=== PATIENT | female | born 1955 | race Caucasian/White ===

== ENCOUNTER 2021-06-25 01:51 | Inpatient (IN) | payer OTHER, BC ==
--- OUTSIDE RECORDS SUMMARY | 2021-06-25 01:55 | XMS REPORT | Continuity of Care Document ---
:1955 Author Organization [facility] t Address 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 7-23 st artery artery 00:00: Hospita stenosis stenosis 00 l SOB SOB Disease Active [facility] (shortness (shortness 6-25 st of breath) of breath) 00:00: Ho spita 00 l PAD PAD Disease Active [facility] (periphera (periphera -25 st l artery l artery 00:00: Hospit a disease) disease) 00 l Claudicati Claudicati Disease Active M [facility]i on on 04-07 st 00:00: Hospita 00 l Aortic Aortic Disease Active [facility] valve valve 04-07 st disorder disorder 00:00: Hospit a 00 l Hyperlipid Hyperlipid Disease Active M ethodi emia emia 04-07 00:00: Hospita 00 l Carotid Carotid Disease Active [facility] bruit bruit 04-07 00:00: Hospita 00 l Allergies, Adverse Reactions, Alerts This patient has no known allergies or adverse reactions. Family History Family Member Diagnosis Comments Start Date Stop Date Source Natural mother Heart attack [facility] Natural mother CABG/Stent [facility] Natural father Alzheimer's disease [facility] Social History Social Habit Start Date Stop Date Quantity Comments Source History SDOH [facility] Alcohol Std Drinks Hospit al History SDOH [facility] Alcohol Binge Hospital Exposure to Not sure [facility] SARS-CoV-2 (event) Hospit al Cigarettes smoked 2020-05-31 2020-05-[address] current (pack per 00:00:00 00:00:00 Hospita l day) - Reported Cigarette 2020-05-31 2020-05-31 [facility] pack-years 00:00:00 00:00:00 Hospital Tobacco use and 2020-05-31 2020-05-31 Never used [facility] exposure 00:00:00 00:00:00 Hospital Alcohol intake 2020-05-31 2020-05-31 Lifetime [facility] 00:00:00 00:00:00 non-drinker Hospital (finding) History SDOH 2020-05-31 2020-05-31 1 [facility] Alcohol Frequency 00:00:00 00:00:00 Hospita History of tobacco 2004-04-07 Current smoker [facility] use 00:00:00 Hospital Sex Ass[birth year] At [birth year] [facility] 00:00:00 00:00:00 Hospital Smoking Status Start Date Stop Date Source Former smoker 2020-05-31 00:00:00 2020-05-31 00:00:00 [facility] Medications Ordered Filled Start Stop Current Ordering Indication Dosage Frequency Signature Comments Components Source Medication Medication Date Date Medication? Clinician (SIG) Name Name rosuvastati 2019-10 Yes Take 1 Meth brianne n (CRESTOR) 0-[address] 10 mg 00:00: mouth once Hospit a tablet 00 daily l rosuvastati 2019- No 10mg QD Take 10 mg [facility] n (CRESTOR) 7-23 10-[address] 10 mg 00:00: 00:00 daily. Hospita tablet 00 :00 l metFORMIN 2018-10 Yes TAKE 2 Method i XR 2-[address] (GLUCOPHAGE 00:00: MOUTH ONCE Hospita -XR) 500 mg 00 DAILY WITH l 24 hr EVENING tablet MEAL naproxen 2018-10 Yes [facility] (NAPROSYN) 1-27 st 375 MG 00:00: Hospita tablet 00 l traMADol 2018-10 Yes Take by Method i (ULTRAM) 50 1-[address] mg tablet 00:00: Hospita 00 l cyclobenzap 2018-10 Yes TAKE 1 Meth brianne rine 1-[address] (FLEXERIL) 00:00: MOUTH Hospit a 5 mg tablet 00 THREE l TIMES DAILY NEEDED SPASM levothyroxi Yes Method i ne 5-15 st (SYNTHROID, 00:00: Hospit a LEVOXYL) 00 l 100 mcg tablet glipiZIDE Yes [facility] (GLUCOTROL) 01-06 st 10 MG 00:00: Hospita tablet 00 l Vital Signs Vital Name Observation Time Observation Value Comments Source Systolic blood 2021-06-20 13:38:00 136 mm[Hg] [facility] Hospital pressure Diastolic blood 2021-06-20 13:38:00 60 mm[Hg] [facility] Hospital pressure Heart rate 2021-06-20 13:38:00 97 /min [facility] Body height 2021-06-20 13:38:00 167.6 cm [facility] Body weight 2021-06-20 13:38:00 72.122 kg [facility] BMI 2021-06-20 13:38:00 25.66 kg/m2 [facility] Procedures Procedure Date / Time Performed Performing Clinician [facility] e ECG 12-LEAD 2020-12-13 14:17:14 Matthew Chappell [facility] angela Plan of Care Planned Activity Planned Date Details Comments Source Future Scheduled Test 65+ PNEUMOCOCCAL [facility] VACCINE (1 of 2 - PPSV23) [code = 65+ PNEUMOCOCCAL VACCINE (1 of 2 - PPSV23)] Future Scheduled Test Hepatitis C screening [facility] (procedure) [code = 491688739] Future Scheduled Test BREAST CANCER SCREENING [facility] [code = BREAST CANCER SCREENING] Future Scheduled Test COLONOSCOPY SCREENING [facility] [code = COLONOSCOPY SCREENING] Future Scheduled Test SHINGLES VACCINES (#1) [facility] [code = SHINGLES VACCINES (#1)] Future Scheduled Test INFLUENZA VACCINE [code [facility] = INFLUENZA VACCINE] Encounters Start End Encounter Admission Attending Care Care Encounter Source Date/Time Date/Time Type Type Clinicians Facility Department ID 2021-06-20 2021-06-20 Office Chappell, 1.2.840.1 [id number] [facility] 08:30:38 13:21:14 Visit Matthew Johnson [id number] 3.430.2.7 Hospit a .3.890085 l .8 2021-06-20 2021-06-20 Outpatient [facility] [id number] [address] [place] [address] 00:00:00 00:00:[address] 2021-06-20 2021-06-20 Travel 1.2.840.1 [id number] [facility] 00:00:00 00:00:[id number] 3.430.2.7 0.2.7.3.698 Ho spita .3.893338 084.8 l .8 2020-12-13 2020-12-13 [facility] Ta, 1.2.840.1 [id number] [facility] 08:06:06 13:00:42 Visit Matthew Johnson [id number] 3.430.2.7 Hospit a .3.328522 l .8 2020-12-13 2020-12-13 Outpatient [facility] [id number] [address] [place] [address] 00:00:00 00:00:[address] 2020-12-13 2020-12-13 Travel 1.2.840.1 [id number] [facility] 00:00:00 00:00:[id number] 3.430.2.7 0.2.7.3.698 Ho spita .3.758055 084.8 l .8 2020-11-23 2020-11-23 [facility] Eugene, 1.2.840.1 [id number] [facility] 00:00:00 00:00:00 Only Magdalena [address]30.1.[address] 3.430.2.7 Hospit a .3.367905 l .8 2020-08-02 2020-08-02 Refill Ta, 1.2.840.1 [id number] [facility] 00:00:00 00:00:00 Matthew REamon [id number] 3.430.2.7 Hospit a .3.023997 l .8 2020-05-31 2020-05-31 Outpatient [facility] [id number] 00:00:00 00:00:00 MATTHEW [address] 2020-05-24 2020-05-24 Outpatient [facility] [id number] 00:00:00 00:00:00 MATTHEW [address] 2020-05-23 2020-05-23 Outpatient [facility] [id number] 00:00:00 00:00:00 MATTHEW [address] 2020-05-13 2020-05-13 Outpatient [facility] [id number] 00:00:00 00:00:00 MATTHEW [address] 2020-05-02 2020-05-02 Outpatient [facility] [id number] 00:00:00 00:00:00 MATTHEW [address] Results Test Description Test Time Test Comments Results Result Comments Source ECG 12 lead 2020-12-14 16:53:30 Test Item Value Reference Range Interpretation Comme nts Ventricular rate (test code = 253) Atrial rate (test code = 255) SC interval (test code = 266) QRSD interval (test code = 260) QT interval (test code = 264) QTC interval (test code = 265) P axis 1 (test code = 267) QRS axis 1 (test code = 268) T wave axis (test code = 270) EKG impression (test code = 273) Normal sinus rhythm-Possible Left atrial enlargement-Septal infarct , age undetermined-Abnormal ECG-No previous ECGs available- [facility]
[2021-06-25 02:55] LABS: Absolute Lymphocytes (CBC) 2.1 K/uL (0.7-4.9); Basophils % 0.5 % (0-1.3); Hematocrit 42.4 % (36.0-45.0); Lymphocytes % 21.7 % (15.3-44.8); MPV 9.6 fL (7.6-11.3); RBC Red Blood Cell Count 4.75 M/uL (3.86-4.86)
[2021-06-25 02:56] LABS: Protime INR 1.03
[2021-06-25 03:09] LABS: ALT/SGPT 28 U/L (12-78); AST/SGOT 16 U/L (15-37); Albumin 4.2 g/dL (3.4-5.0); Alkaline Phosphatase 40 U/L (45-117); BUN Blood Urea Nitrogen 15 mg/dL (7-18); Bicarbonate 26 mmol/L (21-32); Bilirubin Direct 0.3 mg/dL (0-0.2); Bilirubin Total 1.4 mg/dL (0.2-1.0); Glucose Level 202 mg/dL (74-106); Magnesium 1.8 mg/dL (1.8-2.4); NT PRO-BNP 1365 pg/mL (<125); Potassium 3.5 mmol/L (3.5-5.1); Protein, Total 7.4 g/dL (6.4-8.2); Sodium Level 140 mmol/L (136-145); Troponin (Emerg Dept Use Only) < 0.02 ng/mL (0.0-0.045)
--- NOTE | 2021-06-25 05:32 | EDPHYS ---
Physician Documentation [facility] Name: Cindi Perry Age: 65 yrs Sex: Female : 1955 Arrival Date: 06/25/2021 Time: 01:59 Bed 25 Private MD: ED Physician Héctor Oates HPI: 06/25 05:26 This 65 yrs old Female presents to ER via Wheelchair with complaints of tw4 shortness of breath. 05:26 Onset: The symptoms/episode began/occurred today. The patient's shortness of breath has tw4 no apparent modifying factors. Severity of symptoms: At their worst the symptoms were moderate in the emergency department the symptoms are unchanged. The patient has not experienced similar symptoms in the past. Historical: - Allergies: 02:02 No Known Allergies; em - PMHx: 02:02 Diabetes mellitus; Heart murmur; em - PSHx: 02:02 hysterectomy; em - Immunization history:: Adult Immunizations up to date. - Social history:: Smoking status: Patient denies any tobacco usage or history of. ROS: 05:26 Constitutional: Negative for fever, chills, and weight loss, Eyes: Negative for injury, tw4 pain, redness, and discharge, Abdomen/GI: Negative for abdominal pain, nausea, vomiting, diarrhea, and constipation, Back: Negative for injury and pain, MS/Extremity: Negative for injury and deformity, Skin: Negative for injury, rash, and discoloration, Neuro: Negative for headache, weakness, numbness, tingling, and seizure. 05:26 Cardiovascular: Positive for chest pain. 05:26 Respiratory: Positive for shortness of breath. Exam: 05:26 Constitutional: This is a well developed, well nourished patient who is awake, alert, tw4 and in no acute distress. Head/Face: Normocephalic, atraumatic. Chest/axilla: Normal chest wall appearance and motion. Nontender with no deformity. No lesions are appreciated. Cardiovascular: Regular rate and rhythm with a normal S1 and S2. No gallops, murmurs, or rubs. Normal PMI, no JVD. No pulse deficits. Respiratory: Lungs have equal breath sounds bilaterally, clear to auscultation and percussion. No rales, rhonchi or wheezes noted. No increased work of breathing, no retractions or nasal flaring. Abdomen/GI: Soft, non-tender, with normal bowel sounds. No distension or tympany. No guarding or rebound. No evidence of tenderness throughout. Back: No spinal tenderness. No costovertebral tenderness. Full range of motion. Skin: Warm, dry with normal turgor. Normal color with no rashes, no lesions, and no evidence of cellulitis. MS/ Extremity: Pulses equal, no cyanosis. Neurovascular intact. Full, normal range of motion. Neuro: Awake and alert, GCS 15, oriented to person, place, time, and situation. Cranial nerves II-XII grossly intact. Motor strength 5/5 in all extremities. Sensory grossly intact. Cerebellar exam normal. Normal gait. Vital Signs: 01:59 BP 159 / 85; Pulse 120; Resp 26; Temp 98.8(O); Pulse Ox 91% on R/A; Weight 72.57 kg; em Height 5 ft. 6 in. (167.64 cm); 09:00 BP 127 / 66; Pulse 103; Resp 15; Temp 98.1; Pulse Ox 89% on R/A; Pain 0/10; hb 09:39 BP 126 / 65; Pulse 94; Resp 15; Pulse Ox 95% on 2 lpm NC; hb 12:52 BP 128 / 56; Pulse 102; Resp 24; Pulse Ox 96% on 2 lpm NC; vg1 14:07 BP 113 / 64; Pulse 94; Resp 18; Pulse Ox 97% on 2 lpm NC; vg1 01:59 Body Mass Index 25.82 (72.57 kg, 167.64 cm) em MDM: 05:31 Patient medically screened. tw4 06:44 Differential diagnosis: Bronchitis Chronic Obstructive Pulmonary Disease Myocardial tw4 Infarction pneumonia, pulmonary edema, reactive airway disease, Sepsis. Antibiotic administration: Rocephin and Zithromax given. Data reviewed: vital signs, nurses notes. Data interpreted: Pulse oximetry:. Test interpretation: by ED physician or midlevel provider: ECG, plain radiologic studies. Counseling: I had a detailed discussion with the patient and/or guardian regarding: the historical points, exam findings, and any diagnostic results supporting the discharge/admit diagnosis. 06/25 02:03 Order name: Basic Metabolic Panel 06/25 02:03 Order name: CBC with Diff; Complete Time: 03:33 06/25 03:34 Interpretation: Normal except: RDW 16.4; MCV 89.1. [facility] 06/25 02:03 Order name: LFT's 06/25 02:03 Order name: Magnesium; Complete Time: 03:33 06/25 03:33 Interpretation: Within normal limits: MG 1.8. [facility] 06/25 02:03 Order name: NT PRO-BNP; Complete Time: 03:33 06/25 03:33 Interpretation: Normal except: NT PRO-BNP 1365. [facility] 06/25 02:03 Order name: PT-INR; Complete Time: 03:33 06/25 03:34 Interpretation: Within normal limits: PT 11.9; INR <p>1.03</p>. [facility] 06/25 02:03 Order name: Troponin (emerg Dept Use Only); Complete Time: 03:33 06/25 03:34 Interpretation: Within normal limits: TROPED < 0.02. [facility] 06/25 02:03 Order name: XRAY Chest (1 view) 06/25 02:04 Order name: Basic Metabolic Panel; Complete Time: 03:33 [facility] 06/25 03:33 Interpretation: Normal except: GLUC 202; GFR 82. [facility] 06/25 02:04 Order name: Liver (Hepatic) Function; Complete Time: 03:33 [facility] 06/25 03:33 Interpretation: Normal except: BILIT 1.4; ALK 40; BILID 0.3. [facility] 06/25 04:36 Order name: SARS-COV-2 RT PCR [facility] 06/25 13:49 Order name: Hemoglobin A1c [facility] 06/25 13:49 Order name: Troponin I [facility] 06/25 02:03 Order name: EKG; Complete Time: 02:04 06/25 02:03 Order name: Cardiac monitoring; Complete Time: 02:39 06/25 02:03 Order name: EKG - Nurse/Tech; Complete Time: 02:39 06/25 02:03 Order name: IV Saline Lock; Complete Time: 02:39 06/25 02:03 Order name: Labs collected and sent; Complete Time: 02:39 06/25 02:03 Order name: O2 Per Protocol; Complete Time: 02:39 06/25 02:03 Order name: O2 Sat Monitoring; Complete Time: 02:39 em 06/25 03:33 Order name: CT Chest For PE Angio tw4 06/25 13:49 Order name: CONS Physician Consult EDMS 06/25 13:49 Order name: 60g Consistent Carbohydrate (ADA 1800/1999) EDMS EC:26 Rate is 117 beats/min. Rhythm is regular. QRS [place] is Normal. [place] interval is normal. tw4 QRS interval is normal. QT interval is normal. No Q waves. T waves are Inverted in lead V6. No ST changes noted. Clinical impression: Sinus tachycardia. Interpreted by me. Reviewed by me. Administered Medications: 06:19 Drug: Rocephin (cefTRIAXone) 1 grams Route: IV; Rate: calculated rate; Site: left em antecubital; 12:53 Follow up: Response: No adverse reaction; IV Status: Completed infusion vg1 06:19 Drug: AZITHromycin 500 mg Route: IVPB; Infused Over: 1 hrs; Site: left antecubital; em 12:53 Follow up: Response: No adverse reaction; IV Status: Completed infusion vg1 Disposition Summary: 06/25/21 05:31 Hospitalization Ordered Hospitalization Status: Inpatient Admission tw4 Provider: Addy Vaughan tw4 Condition: Stable tw4 Problem: new tw4 Symptoms: have improved tw4 Bed/Room Type: Standard tw4 Location: Telemetry/MedSurg (Inpatient)(06/25/21 09:11) Room Assignment: [facility](06/25/21 14:00) Diagnosis - Chest pain, unspecified tw4 - Dyspnea tw4 Forms: - Medication Reconciliation Form tw4 - SBAR form tw4 Signatures: Dispatcher [employer] EDWY Jessica Curry RN RC Yvonne Hernandez RN RN Brett Simon RN RN Jovita Barrios RN RN Héctor Oates MD MD [facility] Sita Palomo RN vg1 Corrections: (The following items were deleted from the chart) 03:34 03:33 Normal except: RDW 16.4. tw4 tw4 03:41 02:39 CORONAVIRUS+MR.LAB.BRZ ordered. [facility] EDWY 05:35 05:31 Telemetry/MedSurg (Inpatient) tw4 05:35 05:31 tw4 mw 09:11 05:35 [facility] ER HOLD mw hb 09:11 05:35 ERHOLD- mw hb 14:00 09:11 hb dw
--- NOTE | 2021-06-25 05:32 | ER ---
Nurse's Notes [facility] Name: Cindi Perry Age: 65 yrs Sex: Female : 1955 Arrival Date: 06/25/2021 Time: 01:59 Bed 25 Private MD: Diagnosis: Chest pain, unspecified;Dyspnea Presentation: 06/25 01:59 Chief complaint: Patient states: shortness of breath and trouble breathing since em yesterday, reports worse when trying to sleep, denies cough fever or any covid symptoms, went to the insulation blower on and was told she had a heart murmur. Coronavirus screen: Vaccine status: Patient reports receiving the 2nd dose of the covid vaccine. Ebola Screen: Patient negative for fever greater than or equal to 101.5 degrees Fahrenheit, and additional compatible Ebola Virus Disease symptoms Patient denies exposure to infectious person. Patient denies travel to an Ebola-affected area in the 21 days before illness onset. No symptoms or risks identified at this time. Initial Sepsis Screen: Does the patient meet any 2 criteria? HR > 90 bpm. No. Patient's initial sepsis screen is negative. Does the patient have a suspected source of infection? No. Patient's initial sepsis screen is negative. Risk Assessment: Do you want to hurt yourself or someone else? Patient reports no desire to harm self or others. Onset of symptoms was June 25, 2021. 01:59 Method Of Arrival: Wheelchair em 01:59 Acuity: AG 2 em Historical: - Allergies: 02:02 No Known Allergies; em - PMHx: 02:02 Diabetes mellitus; Heart murmur; em - PSHx: 02:02 hysterectomy; em - Immunization history:: Adult Immunizations up to date. - Social history:: Smoking status: Patient denies any tobacco usage or history of. Screenin:16 Abuse screen: Denies threats or abuse. Nutritional screening: No deficits noted. lh3 Tuberculosis screening: No symptoms or risk factors identified. Fall Risk None identified. Assessment: 08:00 General: Appears in no apparent distress. Behavior is calm, cooperative. Pain: Denies hb pain. Neuro: Level of Consciousness is awake, alert, obeys commands, Oriented to person, place, time, situation. 08:00 Cardiovascular: Capillary refill < 3 seconds Patient's skin is warm and dry. Rhythm is hb regular. Respiratory: Respiratory effort is even, unlabored, Respiratory pattern is regular, symmetrical. GI: No signs and/or symptoms were reported involving the gastrointestinal system. : No signs and/or symptoms were reported regarding the genitourinary system. EENT: No signs and/or symptoms were reported regarding the EENT system. Derm: Skin is pink, warm \T\ dry. Musculoskeletal: No signs and/or symptoms reported regarding the musculoskeletal system. 09:00 Reassessment: Patient appears in no apparent distress at this time. No changes from hb previously documented assessment. Patient and/or family updated on plan of care and expected duration. Pain level reassessed. 10:01 Reassessment: Patient appears in no apparent distress at this time. Pt is resting with vg1 eyes closed. Spouse at bedside. 11:00 Reassessment: Patient appears in no apparent distress at this time. Patient and/or vg1 family updated on plan of care and expected duration. Pain level reassessed. Patient is alert, oriented x 3, equal unlabored respirations, skin warm/dry/pink. 11:36 Reassessment: Awaiting Dr. Vaughan to see patient and place admission orders. ss 12:10 Reassessment: Patient appears in no apparent distress at this time. No changes from vg1 previously documented assessment. Patient and/or family updated on plan of care and expected duration. Pain level reassessed. pt eating sandwich; spouse at bedside. Patient denies pain at this time. Patient states feeling better. 12:35 Reassessment: Dr. Vaughan here in the ER to see patient. ss 12:52 Reassessment: Patient appears in no apparent distress at this time. Patient and/or vg1 family updated on plan of care and expected duration. Pain level reassessed. Patient is alert, oriented x 3, equal unlabored respirations, skin warm/dry/pink. Patient denies pain at this time. Patient states feeling better. 13:32 Reassessment: Dr Vaughan at bedside. vg1 14:11 Reassessment: Attempted to call report. vg1 14:23 Reassessment: Patient appears in no apparent distress at this time. Patient and/or vg1 family updated on plan of care and expected duration. Pain level reassessed. Patient is alert, oriented x 3, equal unlabored respirations, skin warm/dry/pink. Patient denies pain at this time. Patient states feeling better. Vital Signs: 01:59 BP 159 / 85; Pulse 120; Resp 26; Temp 98.8(O); Pulse Ox 91% on R/A; Weight 72.57 kg; em Height 5 ft. 6 in. (167.64 cm); 09:00 BP 127 / 66; Pulse 103; Resp 15; Temp 98.1; Pulse Ox 89% on R/A; Pain 0/10; hb 09:39 BP 126 / 65; Pulse 94; Resp 15; Pulse Ox 95% on 2 lpm NC; hb 12:52 BP 128 / 56; Pulse 102; Resp 24; Pulse Ox 96% on 2 lpm NC; vg1 14:07 BP 113 / 64; Pulse 94; Resp 18; Pulse Ox 97% on 2 lpm NC; vg1 01:59 Body Mass Index 25.82 (72.57 kg, 167.64 cm) em ED Course: 01:59 Patient arrived in ED. em 02:02 Triage completed. em 02:02 Arm band placed on. em 02:15 Héctor Oates MD is Attending Physician. tw4 02:17 Priti Chester, RN is Primary Nurse. lh3 02:17 Liver (Hepatic) Function Sent. lh3 02:20 XRAY Chest (1 view) In Process Unspecified. EDMS 02:39 Basic Metabolic Panel Sent. lh3 02:39 Basic Metabolic Panel Sent. lh3 02:39 LFT's Sent. lh3 02:39 CBC with Diff Sent. lh3 02:39 Magnesium Sent. lh3 02:39 NT PRO-BNP Sent. lh3 02:39 PT-INR Sent. lh3 02:39 Troponin (emerg Dept Use Only) Sent. lh3 04:11 CT Chest For PE Angio In Process Unspecified. EDMS 05:30 Addy Vaughan MD is Hospitalizing Provider. tw4 07:16 Patient has correct armband on for positive identification. Bed in low position. Call lh3 light in reach. Side rails up X 1. 07:16 No provider procedures requiring assistance completed. Inserted saline lock: 20 gauge lh3 in left forearm, using aseptic technique. Patient admitted, IV remains in place. Administered Medications: 06:19 Drug: Rocephin (cefTRIAXone) 1 grams Route: IV; Rate: calculated rate; Site: left em antecubital; 12:53 Follow up: Response: No adverse reaction; IV Status: Completed infusion vg1 06:19 Drug: AZITHromycin 500 mg Route: IVPB; Infused Over: 1 hrs; Site: left antecubital; em 12:53 Follow up: Response: No adverse reaction; IV Status: Completed infusion vg1 Outcome: 05:31 Decision to Hospitalize by Provider. tw4 07:16 Admitted to ER Hold. Please see [facility] for further documentation. lh3 07:16 Condition: good 07:16 Instructed on the need for admit. 14:22 Admitted to Tele via wheelchair, room 212, with oxygen, with chart, Report called to 1 RC Meyers 14:22 Condition: stable 14:22 Instructed on the need for admit. 14:30 Patient left the ED. [facility] Signatures: Dispatcher [employer] Brett Benjamin RN Tere Hughes, RN Jovita Miller RN RN hb Wadley, Terrence, MD MD 4 Sita Palomo RN RN 1 Priti Chester RN RN 3
[2021-06-25] MEDS ORDERED: AZITHROMYCIN 500 MG INJ IVPB ONE (06:16)
[2021-06-25] MEDS ORDERED: NA CHLORIDE 0.9% 250 ML ONE (06:17)
[2021-06-25] MEDS ORDERED: CEFTRIAXONE/SWI 1gm 1 GM/10 ML SYR ONE (06:17)
--- NOTE | 2021-06-25 12:12 | RAD REPORT ---
EXAM DESCRIPTION: RAD - Chest Single View - 06/25/2021 2:20 am CLINICAL HISTORY: CHEST PAIN Chest pain. COMPARISON: Chest Pa And Lat (2 Views) dated 10/17/2018; CHEST PA AND LAT 2 VIEW dated 03/05/2012 FINDINGS: Portable technique limits examination quality. Moderate bilateral pulmonary opacities are present, likely representing viral infection. The heart is normal in size. No displaced fractures.
[2021-06-25] MEDS ORDERED: GLUCAGON 1 MG/VIAL IM PRN (13:45)
[2021-06-25] MEDS ORDERED: D50W 25 GM/50 ML SYRINGE IV PRN (13:45)
--- NOTE | 2021-06-25 13:54 | P.HP ---
Certification for Inpatient Patient admitted to: Observation With expected LOS: <2 Midnights Patient will require the following post-hospital care: None Practitioner: I am a practitioner with admitting privileges, knowledge of patient current condition, hospital course, and medical plan of care. Services: Services provided to patient in accordance with Admission requirements found in Title 42 Section 412.3 of the Code of Federal Regulations Patient History Date of Service: 06/25/21 Primary Care Provider: Ta Reason for admission: angina History of Present Illness: Patient comes in with complaints of chest pain and sob. She had about 30min of chest tightness last night with some sob. She has a history of heart murmur, DM2 and hyperlipidemia. The patient follow up with Dr Matthew Chappell. She actually has her yearly echocardiogram scheduled for this coming Saturday. The patients symptoms have resolved. She is feeling well at this time. Allergies No Known Allergies Allergy (Unverified 06/25/21 09:10) Review of Systems 10-point ROS is otherwise unremarkable Respiratory: Shortness of Breath Cardiovascular: Chest Pain Physical Examination - Physical Exam General: Alert, In no apparent distress HEENT: Atraumatic, PERRLA, Mucous membr. moist/pink, EOMI, Sclerae nonicteric Neck: Supple, 2+ carotid pulse no bruit, No LAD, Without JVD or thyroid abnormality Respiratory: Clear to auscultation bilaterally, Normal air movement Cardiovascular: Regular rate/rhythm, Normal S1 S2, Systolic murmur (aortic area) Gastrointestinal: Normal bowel sounds, No tenderness Musculoskeletal: No tenderness Integumentary: No rashes Neurological: Normal gait, Normal speech, Normal strength at 5/5 x4 extr, Normal tone, Normal affect Lymphatics: No axilla or inguinal lymphadenopathy - Studies Laboratory Data (last 24 hrs) 06/25/21 02:34: PT 11.9, INR 1.03 06/25/21 02:34: WBC 9.70, Hgb 13.7, Hct 42.4, Plt Count 182 06/25/21 02:34: Sodium 140, Potassium 3.5, BUN 15, Creatinine 0.71, Glucose 202 H, Magnesium 1.8, Total Bilirubin 1.4 H, AST 16, ALT 28, Alkaline Phosphatase 40 L Assessment and Plan - Problems (Diagnosis) (1) Chest pain Current Visit: Yes Status: Acute Plan: Possible an arrythmia, vs angina. Will order serial troponins. consult Dr. Sterling and keep the patient in observations. Qualifiers: Chest pain type: unspecified Qualified Code(s): R07.9 - Chest pain, unspecified (2) DM2 (diabetes mellitus, type 2) Current Visit: Yes Status: Chronic Plan: will start her home medications. Check and a1c on the patient Qualifiers: Diabetes mellitus long term care social worker insulin use: without shelter use Diabetes mellitus complication status: without complication Qualified Code(s): E11.9 - Type 2 diabetes mellitus without complications (3) Hyperlipidemia Current Visit: Yes Status: Chronic Plan: check her lipid profile. Qualifiers: Hyperlipidemia type: mixed hyperlipidemia Qualified Code(s): E78.2 - Mixed hyperlipidemia Discharge Plan: Home - Advance Directives Does patient have a Living Will: No Does patient have a Durable POA for Healthcare: No - Code Status/Comfort Care Code Status Assessed: Yes Code Status: Full Code Physician Review: Patient Assessed, Agree with Above Assessment and Plan Critical Care: No Time Spent Managing Pts Care (In Minutes): 45
[2021-06-25 14:51] VITALS: BMI 25.8
[2021-06-25 15:17] VITALS: O2SAT 96
--- NOTE | 2021-06-25 15:42 | CON ---
Date of Consultation: 06/25/2021 Reason For Consultation: Congestive heart failure. History Of Present Illness: This is a 65-year-old female with history of diabetes, dyslipidemia, que stionable history of aortic valve stenosis, presented with shortness of breath and chest tightness an d exertional shortness of breath and orthopnea. No lower extremity edema. Episode lasted for about 30 minutes and resolved. Does not have any other complaints at present time. She is asymptomatic. Past Medical History: As outlined above in HPI. Medications: Refer to reconciliation sheet for detailed list. Allergies: NO KNOWN DRUG ALLERGIES. Family History: No premature coronary artery disease or cancer. Social History: Does not smoke or drink. Does not use any drugs. Review of Systems: All systems reviewed and they were negative except for mentioned in HPI. Physical Examination: Vital Signs: Temperature is 98.1, pulse 94, breathing at 18, blood pressure is 113/64, saturating 97 %. General: Pleasant elderly female, in no apparent distress. Head and Neck: Pupils are equal, reactive to light. Intact eye movements. No JVD. No cervical lym phadenopathy. Neck is supple. Thyroid is not enlarged. Lungs: Clear to auscultation bilaterally. No rhonchi, rales, or crackles. No accessory muscle use. Heart: Regular rate and rhythm with aortic systolic ejection murmur. Abdomen: Soft, nontender. Bowel sounds positive. No organomegaly. No masses or hernia. No rigidi ty or rebound. Extremities: No edema, clubbing, or cyanosis. Intact pulses. Skin: No rash noted. Neurologic: Alert, awake, oriented x3. No acute focal deficits appreciated. Lymph Nodes: No cervical or axillary lymphadenopathy. Investigations: Troponin less than 0.02. NT-proBNP is 1365. Creatinine 0.75. Chest x-ray showed m ild pulmonary edema. Assessment And Recommendations: 1.Acute on chronic congestive heart failure exacerbation. Start Lasix 40 mg q.12 hours. Monitor BU N, creatinine, electrolytes, and please obtain echocardiogram. 2.Aortic valve stenosis. Please obtain echo to further evaluate the severity and also do serial set s of cardiac enzymes and further recommendations to follow. SR/MODL Voice ID: [id number] Report ID: [id number]
[2021-06-25] MEDS: METFORMIN HCL 500 MG TAB PO SCH (17:03)
[2021-06-25] MEDS: carvediloL 3.125 MG TAB PO SCH (17:03)
[2021-06-25] MEDS: ENOXAPARIN 40 MG/0.4 ML SQ SCH (17:03)
[2021-06-25] MEDS: INSULIN -REGULAR HUMAN 50 UNIT/0.5 ML ML SQ SCH ×2 (17:04→21:00)
--- NOTE | 2021-06-25 21:45 | RAD REPORT ---
EXAM DESCRIPTION: CT Angiography Chest With Intravenous Contrast CLINICAL HISTORY: The patient is 65 years old and is Female; SOB TECHNIQUE: Axial computed tomographic angiography images of the chest with intravenous contrast. S agittal and coronal reformatted images were created and reviewed. This CT exam was performed using one or more of the following dose reduction techniques: automated exposure control, adjustment of t he mA and/or kV according to patient size, and/or use of iterative reconstruction technique. MIP reconstructed images were created and reviewed. COMPARISON: No relevant prior studies available. FINDINGS: ARTIFACTS: The exam is suboptimal secondary to motion artifact. PULMONARY ARTERIES: There are no obvious filling defects identified within the pulmonary arteries to suggest pulmonary embolism. AORTA: Atherosclerosis of the vasculature is present. No thoracic aortic aneurysm. LUNGS: Mild smooth interlobular thickening with subtle groundglass opacities within the lower lob es is noted. PLEURAL SPACE: Moderate bilateral pleural effusions are present. No pneumothorax. HEART: Unremarkable. No cardiomegaly. No significant pericardial effusion. No evidence of R V dysfunction. BONES/JOINTS: No acute fracture. No dislocation. SOFT TISSUES: Unremarkable. LYMPH NODES: Unremarkable. No enlarged lymph nodes. IMPRESSION: 1. No evidence of pulmonary embolism. 2. Moderate bilateral pleural effusions. 3. Subtle groundglass opacities specifically in the lower lobes. Groundglass opacification is a non specific finding and not necessarily indicative of significant pathology. However, in the appropriate clinical setting, pulmonary edema, pneumonia, or atypical infectious process to include viral pneumo nitis should be considered. Electronically signed by: Aleisha Rai MD 06/25/2021 4:24 AM CDT Due to temporary technical issues with the PACS/Fluency reporting system, reports are being signed by the in house radiologists without review as a courtesy to insure prompt reporting. The interpreting radiologist is fully responsible for the content of the report.
[2021-06-26] MEDS: carvediloL 3.125 MG TAB PO SCH ×2 (06:00→17:06)
[2021-06-26 06:02] LABS: Absolute Lymphocytes (CBC) 2.7 K/uL (0.7-4.9); Basophils % 0.8 % (0-1.3); Hematocrit 40.6 % (36.0-45.0); Lymphocytes % 35.3 % (15.3-44.8); MPV 9.9 fL (7.6-11.3)
[2021-06-26 06:17] LABS: Albumin 3.5 g/dL (3.4-5.0); Bilirubin Total 1.7 mg/dL (0.2-1.0); Potassium 4.3 mmol/L (3.5-5.1); Protein, Total 6.6 g/dL (6.4-8.2); Thyroid Stimulating Hormone 2.22 uIU/mL (0.360-3.740)
[2021-06-26] MEDS: METFORMIN HCL 500 MG TAB PO SCH ×2 (07:56→17:06)
[2021-06-26] MEDS: INSULIN -REGULAR HUMAN 50 UNIT/0.5 ML ML SQ SCH ×4 (07:57→20:40)
[2021-06-26] MEDS ORDERED: SITAGLIPTIN PHOS 100 MG TAB PO SCH (09:00)
--- NOTE | 2021-06-26 13:52 | P.PN ---
Subjective Date of Service: 06/26/21 Primary Care Provider: Ta Chief Complaint: angina Subjective: Improving Review of Systems 10-point ROS is otherwise unremarkable Physical Examination - Vital Signs Temperature: 98.2 F Blood Pressure: 128/61 Pulse: 102 Respirations: 18 Pulse Ox (%): 96 - Physical Exam General: Alert, In no apparent distress HEENT: Atraumatic, PERRLA, EOMI Neck: Supple, JVD not distended Respiratory: Clear to auscultation bilaterally, Normal air movement Cardiovascular: Regular rate/rhythm, Normal S1 S2 Gastrointestinal: Normal bowel sounds, No tenderness Musculoskeletal: No tenderness Integumentary: No rashes Neurological: Normal speech, Normal tone, Normal affect Lymphatics: No axilla or inguinal lymphadenopathy Assessment & Plan - Problems (Diagnosis) (1) Chest pain Current Visit: Yes Status: Acute Plan: Possible an arrythmia, vs angina. Will order serial troponins. consult Dr. Sterling and keep the patient in observations. 06/26 Awaiting echo report. Possible discharge tonight. Will discuss with cardiology Qualifiers: Chest pain type: unspecified Qualified Code(s): R07.9 - Chest pain, unspecified (2) DM2 (diabetes mellitus, type 2) Current Visit: Yes Status: Chronic Plan: will start her home medications. Check and a1c on the patient Qualifiers: Diabetes mellitus senior living insulin use: without senior living use Diabetes mellitus complication status: without complication Qualified Code(s): E11.9 - Type 2 diabetes mellitus without complications (3) Hyperlipidemia Current Visit: Yes Status: Chronic Plan: check her lipid profile. Qualifiers: Hyperlipidemia type: mixed hyperlipidemia Qualified Code(s): E78.2 - Mixed hyperlipidemia Discharge Plan: Home Plan to discharge in: 24 Hours - Code Status/Comfort Care Code Status Assessed: No Physician Review: Patient Assessed, Agree with Above Assessment and Plan Critical Care: No Time Spent Managing Pts Care (In Minutes): 20
--- NOTE | 2021-06-26 14:16 | ECHO ---
HEIGHT: 5 ft 6 in WEIGHT: 160 lb 0 oz DATE OF STUDY: 06/26/[address]: Addy Vaughan MD 2-DIMENSIONAL: YES M.MODE: YES DOPPLER: YES COLOR FLOW: YES TDS: NO PORTABLE: NO DEFINITY: NO BUBBLE STUDY: NO DIAGNOSIS: AORTIC STENOSIS CARDIAC HISTORY: CATHERIZATION: SURGERY: PROSTHETIC VALVE: PACEMAKER: MEASUREMENTS (cm) DIASTOLIC (NORMALS) SYSTOLIC (NORMALS) IVSd 1.1 (0.6-1.2) LA Diam 2.8 (1.9-4.0) LVEF 27% LVIDd 4.9 (3.5-5.7) LVIDs 4.3 (2.0-3.5) %FS 13% LVPWd 1.2 (0.6-1.2) Ao Diam 2.6 (2.0-3.7) 2 DIMENSIONAL ASSESSMENT: RIGHT ATRIUM: NORMAL LEFT ATRIUM: NORMAL RIGHT VENTRICLE: NORMAL LEFT VENTRICLE: DEPRESSED TRICUSPID VALVE: MILD TRICUSPID REGURGITATION MITRAL VALVE: MILD TO MODERATE MITRAL REGURGITATION PULMONIC VALVE: NORMAL AORTIC VALVE: HEAVILY CALCIFIED PERICARDIAL EFFUSION: NONE AORTIC ROOT: NORMAL LEFT VENTRICULAR WALL MOTION: SEVERE GLOBAL HYPOKINESIS. DOPPLER/COLOR FLOW: SEE BELOW. COMMENTS: SEVERELY DEPRESSED LEFT VENTRICULAR EJECTION FRACTION 25-30%. SEVERE GLOBAL HYPOKINESIS. SEVERELY CALCIFIED AORTIC VALVE LIKELY WITH SEVERE AORTIC STENOSIS. MILD TO MODERATE MITRAL REGURGITATION. TECHNOLOGIST: CLARA ROCK
[2021-06-26] MEDS: ENOXAPARIN 40 MG/0.4 ML SQ SCH (17:07)
--- NOTE | 2021-06-26 19:00 | P.DS ---
Admission Date: 06/26/21 Discharge Date: 06/26/21 Primary Care Provider: Ta Disposition: TRANSFER TO [facility] Discharge Condition: GOOD Reason for Admission: angina - Problems (1) Chest pain Current Visit: Yes Status: Acute Qualifiers: Chest pain type: unspecified Qualified Code(s): R07.9 - Chest pain, unspecified (2) DM2 (diabetes mellitus, type 2) Current Visit: Yes Status: Chronic Qualifiers: Diabetes mellitus retirement insulin use: without long term care administrator use Diabetes mellitus complication status: without complication Qualified Code(s): E11.9 - Type 2 diabetes mellitus without complications (3) Hyperlipidemia Current Visit: Yes Status: Chronic Qualifiers: Hyperlipidemia type: mixed hyperlipidemia Qualified Code(s): E78.2 - Mixed hyperlipidemia Brief History of Present Illness: Patient comes in with complaints of chest pain and sob. She had about 30min of chest tightness last night with some sob. She has a history of heart murmur, DM2 and hyperlipidemia. The patient follow up with Dr Matthew Chappell. She actually has her yearly echocardiogram scheduled for this coming Saturday. The patients symptoms have resolved. She is feeling well at this time. Hospital Course: Patient presented with angina and sob for 30min. She has a history of aortic stenosis. had an echocardiogram in the hospital. She had moderate pressure gradient across the aorta. The patient had a low ef of 27% Discussed the patient with her powerbuilder. Dr. Matthew Chappell He remembers her not having a such a low EF He would like to take care of his patient. Dr. Sterling has seen the patient in house. Will transfer her to [facility] for her powerbuilder Vital Signs/Physical Exam: Temp Pulse Resp BP Pulse Ox 98.2 F 82 18 136/63 94 06/26/21 16:00 06/26/21 16:00 06/26/21 16:00 06/26/21 16:00 06/26/21 16:00 General: Alert, In no apparent distress HEENT: Atraumatic, PERRLA, EOMI Neck: Supple, JVD not distended Respiratory: Clear to auscultation bilaterally, Normal air movement Cardiovascular: Regular rate/rhythm, Normal S1 S2 Gastrointestinal: Normal bowel sounds, No tenderness Musculoskeletal: No tenderness Integumentary: No rashes Neurological: Normal speech, Normal tone, Normal affect Lymphatics: No axilla or inguinal lymphadenopathy Laboratory Data at Discharge: WBC 7.70 K/uL (4.3-10.9) D 06/26/21 05:12 Hgb 13.1 g/dL (12.0-15.0) 06/26/21 05:12 Hct 40.6 % (36.0-45.0) 06/26/21 05:12 Plt Count 169 K/uL (152-406) 06/26/21 05:12 PT 11.9 SECONDS (9.5-12.5) 06/25/21 02:34 INR 1.03 06/25/21 02:34 Sodium 142 mmol/L (136-145) 06/26/21 05:12 Potassium 4.3 mmol/L (3.5-5.1) 06/26/21 05:12 BUN 12 mg/dL (7-18) 06/26/21 05:12 Creatinine 0.70 mg/dL (0.55-1.3) 06/26/21 05:12 Glucose 163 mg/dL (74-106) H 06/26/21 05:12 Magnesium 1.8 mg/dL (1.8-2.4) 06/25/21 02:34 Total Bilirubin 1.7 mg/dL (0.2-1.0) H 06/26/21 05:12 AST 14 U/L (15-37) L 06/26/21 05:12 ALT 25 U/L (12-78) 06/26/21 05:12 Alkaline Phosphatase 37 U/L (45-117) L 06/26/21 05:12 Troponin I < 0.02 ng/mL (0.0-0.045) 06/25/21 14:53 Triglycerides 118 mg/dL (<150) 06/26/21 05:12 Cholesterol 109 mg/dL (<200) 06/26/21 05:12 HDL Cholesterol 79 mg/dL (40-60) H 06/26/21 05:12 Cholesterol/HDL Ratio 1.38 06/26/21 05:12 Home Medications: Levothyroxine Sodium [Levothyroxine] 1 tab PO [id number] 06/25/21 Metformin ER [Glucophage ER*] 2,000 mg PO BID 06/25/21 Rosuvastatin [Crestor*] 1 tab PO BEDTIME 06/25/21 Followup: NONE,NONE [Primary Care Provider] - Physician Review: Patient Assessed, Agree with Above Assessment and Plan Time spent managing pt's care (in minutes): 60
[2021-06-27] MEDS: carvediloL 3.125 MG TAB PO SCH (05:37)
[2021-06-27 07:15] LABS: Basophils % 0.5 % (0-1.3); Hematocrit 39.2 % (36.0-45.0); Lymphocytes % 41.7 % (15.3-44.8); MPV 9.7 fL (7.6-11.3); RBC Red Blood Cell Count 4.42 M/uL (3.86-4.86)
[2021-06-27 07:31] LABS: ALT/SGPT 21 U/L (12-78); AST/SGOT 11 U/L (15-37); Albumin 3.5 g/dL (3.4-5.0); Alkaline Phosphatase 33 U/L (45-117); BUN Blood Urea Nitrogen 14 mg/dL (7-18); Bicarbonate 28 mmol/L (21-32); Bilirubin Total 1.4 mg/dL (0.2-1.0); Glucose Level 155 mg/dL (74-106); Potassium 3.9 mmol/L (3.5-5.1); Protein, Total 6.5 g/dL (6.4-8.2); Sodium Level 139 mmol/L (136-145)
[2021-06-27] MEDS: INSULIN -REGULAR HUMAN 50 UNIT/0.5 ML ML SQ SCH (08:05)
[2021-06-27] MEDS: METFORMIN HCL 500 MG TAB PO SCH (08:06)
[2021-06-27 08:07] VITALS: BP 124/60; TEMP 97.4
--- NOTE | 2021-06-27 11:22 | P.PN ---
Subjective Date of Service: 06/27/21 Primary Care Provider: Ta Chief Complaint: angina Subjective: No new changes Review of Systems 10-point ROS is otherwise unremarkable Physical Examination - Vital Signs Temperature: 97.4 F Blood Pressure: 124/60 Pulse: 89 Respirations: 17 Pulse Ox (%): 93 - Physical Exam General: Alert, In no apparent distress HEENT: Atraumatic, PERRLA, EOMI Neck: Supple, JVD not distended Respiratory: Clear to auscultation bilaterally, Normal air movement Cardiovascular: Regular rate/rhythm, Normal S1 S2 Gastrointestinal: Normal bowel sounds, No tenderness Musculoskeletal: No tenderness Integumentary: No rashes Neurological: Normal speech, Normal tone, Normal affect Lymphatics: No axilla or inguinal lymphadenopathy Assessment & Plan - Problems (Diagnosis) (1) Chest pain Status: Acute Plan: Possible an arrythmia, vs angina. Will order serial troponins. consult Dr. Sterling and keep the patient in observations. 06/27 Patient discharge held due to bed avalibilty. She is in the room with transportation services. Who are taking her to [facility]. Qualifiers: Chest pain type: unspecified Qualified Code(s): R07.9 - Chest pain, unspecified (2) DM2 (diabetes mellitus, type 2) Status: Chronic Plan: will start her home medications. Check and a1c on the patient Qualifiers: Diabetes mellitus senior care insulin use: without terminal press operator use Diabetes mellitus complication status: without complication Qualified Code(s): E11.9 - Type 2 diabetes mellitus without complications (3) Hyperlipidemia Status: Chronic Plan: check her lipid profile. Qualifiers: Hyperlipidemia type: mixed hyperlipidemia Qualified Code(s): E78.2 - Mixed hyperlipidemia Discharge Plan: Transfer - Code Status/Comfort Care Code Status Assessed: No Physician Review: Patient Assessed, Agree with Above Assessment and Plan Critical Care: No Time Spent Managing Pts Care (In Minutes): 15
--- NOTE | 2021-06-30 15:52 | PN ---
Date of Progress Note: 06/26/2021 Subjective: Ms. Perry was seen by Dr. Sterling for acute congestive heart failure, possible worsening of aortic stenosis. Echocardiogram showed an ejection fraction of 25% what appears to be severe aort ic stenosis. The patient is hemodynamically stable and asymptomatic at this point, has diuresed well . She is not having any chest pain, shortness of breath, palpitation, or syncope. I think she needs to go back to see her nc machinist in [place] for followup in the very near future. I think consid ering she has a new onset congestive heart failure, she should have a left and right heart catheteriz ation, possible TAVR and possible revascularization if needed. She will go home whenever it is okay with Dr. Vaughan. She will see Dr. Chappell in [place] in the near future. I told her to be able to get hold of her records including her echocardiogram report before she goes. XI/RUSS Voice ID: [id number] Report ID: [id number]
== END 2021-06-27 10:50 | disposition short-term general hospital (02) | DRG 311 ==
LOC: ER 01:51 → ERHOLD 14:09 → 2ND 14:23 → OBSVTOIN 06-26 14:35
PROVIDERS: ADMIT Internal Medicine; ATTEND Internal Medicine
DX: I20.9 Angina pectoris, unspecified (principal); I50.21 Acute systolic (congestive) heart failure; I35.0 Nonrheumatic aortic (valve) stenosis; E11.9 Type 2 diabetes mellitus without complications; E78.5 Hyperlipidemia, unspecified; Z20.822 Contact with and (suspected) exposure to COVID-19
CPT/HCPCS: 36415; 71045; 71275; 80048; 80053; 80061; 80076; 82947; 83036; 83735; 83880; 84443; 84484; 85025; 85610; 93005; 93306; 96365; 96366; 96368; 99285; G0378; J0456; J0696; J1650; J7050; Q9967; U0003

== ENCOUNTER 2021-12-29 12:11 | Emergency (ER) | payer OTHER, BC ==
--- OUTSIDE RECORDS SUMMARY | 2021-12-29 12:16 | XMS REPORT | Continuity of Care Document ---
:1955 Author Organization [facility] t Address [address] [place] [address] Dr. Gonzalez. [address] [place] [address] Care Team Providers Name Role Phone Joy Solis MD Primary Care Physician Pedro Attending Clinician Unavailable Miroslava GARCIA Attending Clinician Unavailable DERIC Attending Clinician Unavailable MAURI Attending Clinician Unavailable GISELLE BARNEY Attending Clinician Unavailable GRADY Attending Clinician Unavailable MD THOMAS RASMUSSEN Attending Clinician Unavailable RITESH Attending Clinician Unavailable Jose FOX, Miroslava Attending Clinician Doctor Unassigned, Name Attending Clinician Unavailable Only, Test Attending Clinician Unavailable Pob, Lab Main Attending Clinician Unavailable Eugene BRENNAN Attending Clinician Unavailable Miroslava GARCIA Admitting Clinician Unavailable GISELLE BARNEY Admitting Clinician Unavailable MD THOMAS RASMUSSEN Admitting Clinician Unavailable RITESH Admitting Clinician Unavailable Miroslava Garcia MD Admitting Clinician Payers Payer Name Policy Type Policy Number Effective Date Expiration Date S [facility] MEDICARE PART A \T\ [id number] 2018 B 00:00:00 [employer] TRADITIONAL [id number] 2018 00:00:00 Problems Condition Condition Condition Status Onset Resolution [...] PAD PAD Disease Active Methodi (periphera (periphera 04-07 l artery l artery 00:00: Hospit a disease) disease) 00 l Claudicati Claudicati Disease Active M ethodi on on 04-07 00:00: Hospita 00 l Aortic Aortic Disease Active [facility] valve valve 04-07 disorder disorder 00:00: Hospit a 00 l Hyperlipid Hyperlipid Disease Active M ethodi emia emia 04-07 00:00: Hospita 00 l Carotid Carotid Disease Active [facility] bruit bruit 04-07 00:00: Hospita 00 l Allergies, Adverse Reactions, Alerts Allergy Allergy Status Severity Reaction(s) Onset Inactive Treating Comm ents Source Name Type Date Date Clinician NO KNOWN Drug Active Univers ALLERGIE Class ity of [facility] Family History Family Member Diagnosis Comments Start Date Stop Date Source Natural father Alzheimer's disease [facility] [place] [place] Natural mother CABG/Stent [facility] Natural mother Heart attack [facility] Social History Social Habit Start Date Stop Date Quantity Comments Source History SDOH [facility] Alcohol Std Drinks Hospit al History SDMI [facility] Alcohol Binge Hospital Exposure to Not sure [facility] SARS-CoV-2 (event) Hospit al Tobacco use and 2021-03-02 2021-03-02 Never used Universit y of exposure 00:00:00 00:00:00 [facility] Cigarettes smoked 2020-05-31 2020-05-[address] current (pack per 00:00:00 00:00:00 [facility] day) - Reported Cigarette 2020-05-31 2020-05-31 [facility] pack-years 00:00:00 00:00:00 Hospital Alcohol intake 2020-05-31 2020-05-31 Lifetime Y[facility]ani 00:00:00 00:00:00 non-drinker Hospital (finding) History SDOH 2020-05-31 2020-05-31 1 [facility]:00[facility] of tobacco 2004-04-07 Cigarette Smoker [facility] use 00:00:00 Hospital Sex Ass[birth year] At [birth year] [facility] 00:00:00 00:00:00 [facility] Smoking Status Start Date Stop Date Source Unknown if ever smoked Universit y [facility] Former smoker 2021-03-02 00:00:00 2021-03-02 00:00:00 Universi ty [facility] Medications Ordered Filled Start Stop Current Ordering Indication Dosage Frequency Signature Comments Components Source Medication Medication Date Date Medication? Clinician (SIG) Name Name SITagliptin Yes 100mg Take 100 U nivers (JANUVIA) 6-16 mg by ity of 100 mg 15:49: mouth [place] tablet 00 daily. Medical Branch metFORMIN Yes 1000mg Take 1,000 Univers 1,000 mg 6-16 mg by ity of tablet 15:49: mouth 2 00 (two) Medical times [place] daily with meals. glipiZIDE Yes 5mg Take 5 mg Uni vers XL 5 mg 24 6-16 by mouth ity o f hr tablet 15:49: [place] 00 breakfast. Medical Branch Levothyroxi Yes Take by Un [place] 50 mcg 6-16 mouth. ity of capsule 15:49: Medical Branch SITagliptin Yes 100mg Take 100 U nivers (JANUVIA) 6-16 mg by ity of 100 mg 15:49: mouth [place] tablet 00 daily. Medical Branch metFORMIN Yes 1000mg Take 1,000 Univers 1,000 mg 6-16 mg by ity of tablet 15:49: mouth 2 (two) Medical times [place] daily with meals. glipiZIDE Yes 5mg Take 5 mg Uni vers XL 5 mg 24 6-16 by mouth ity o f hr tablet 15:49: daily [place] 00 breakfast. Medical Branch Levothyroxi Yes Take by Un [place] 50 mcg 6-16 mouth. ity of capsule 15:49: [place] 00 Medical Branch balanced Yes PRN, Univers salt irrig 6-16 Starting ity o f soln comb1 15:10: Wed [place] (BSS PLUS) 00 03/29/21 at [facility] ical ophthalmic 1010, Branch solution Until 500 mL bag Discontinu ed, Routine, Intra-op carbachoL Yes PRN, Univers (MIOSTAT) 6-16 Starting ity of 0.01 % 15:10: Wed [place] intraocular 00 03/29/21 at Sd dical injection 1010, Branch Until Discontinu ed, Routine, Intra-op balanced 2020-0 2020- No PRN, Univers salt irrig 03-29 Starting ity of soln comb1 15:10: 17:49 Wed [place] (BSS PLUS) 00 :00 03/29/21 at [facility] ical ophthalmic 1010, Branch solution Until Sat 500 mL bag 03/29/21 at 1249, Routine, Intra-op carbachoL 2020- No PRN, Univers (MIOSTAT) 03-29 Starting ity o f 0.01 % 15:10: 17:49 Wed [place] intraocular 00 :00 03/29/21 at Sd dical injection 1010, Branch Until Sat03/29/21 at 1249, Routine, Intra-op ceFAZolin Yes PRN, Univers (ANCEF) 03-29 Starting ity of injection 15:09: Sat [place] 00 03/29/21 at [facility] 1009, Branch Until Discontinu ed, YANDY, Intra-op dexamethaso Yes PRN, Univer s ne 03-29 Starting ity of (DECADRON 15:09: Wed [place] PHOSPHATE) 00 03/29/21 at [facility] ical injection 1009, Branch Until Discontinu ed, Routine, Intra-op DUOVISC Yes PRN, Univers (DUOVISC 03-29 Starting ity of VISCO 15:09: Sat [place] ELASTIC) 3 00 03/29/21 at [facility] ical %-4 %(0.5 1009, Branch mL) 1 % Until (0.55 mL) Discontinu intraocular ed, injection Routine, Intra-op ceFAZolin 2020- No PRN, Univers (ANCEF) 03-29 Starting ity of injection 15:09: 17:49 Wed [place] 00 :00 03/29/21 at Medical 1009, Branch Until Sat03/29/21 at 1249, YANDY, Intra-op dexamethaso 2020- No PRN, Unive rs ne 03-29 Starting ity of (DECADRON 15:09: 17:49 Wed [place] PHOSPHATE) 00 :00 03/29/21 at [facility] ical injection 1009, Branch Until Sat03/29/21 at 1249, Routine, Intra-op DUOVISC 2020- No PRN, Univers (DUOVISC 03-29 Starting ity of VISCO 15:09: 17:49 Wed [place] ELASTIC) 3 00 :00 03/29/21 at Med ical %-4 %(0.5 1009, Branch mL) 1 % Until Wed (0.55 mL) 03/29/21 at intraocular 1249, injection Routine, Intra-op EPINEPHrine 0 Yes PRN, Univer s 1:1,000 (1 03-29 Starting ity o f mg/mL) 15:08: Sat [place] (ADRENALIN) 00 03/29/21 at Sd dical injection 1008, Branch Until Discontinu ed, Routine, Intra-op neomycin-po 0 Yes PRN, Univer s lymyxin-dex 03-29 Starting ity of amethasone 15:08: Sat [place] (MAXITROL) 00 03/29/21 at Med ical 3.5 1008, Branch mg/g-10,000 Until unit/g-0.1 Discontinu % ed, ophthalmic Routine, ointment Intra-op sodium Yes PRN, Univers chloride 03-29 Starting ity of (NS) 15:08: Sat [place] injection 00 03/29/21 at Medi [place] 1008, Branch Until Discontinu ed, Routine, Intra-op EPINEPHrine 2020- No PRN, Unive rs 1:1,000 (1 03-29 Starting ity of mg/mL) 15:08: 17:49 [facility] (ADRENALIN) 00 :00 03/29/21 at Sd dical injection 1008, Branch Until 03/29/21 at 1249, Routine, Intra-op neomycin-po 0 2020- No PRN, Unive rs lymyxin-dex 03-29 Starting ity of amethasone 15:08: 17:49 [facility] (MAXITROL) 00 :00 03/29/21 at Med ical 3.5 1008, Branch mg/g-10,000 Until Wed unit/g-0.1 03/29/21 at % 1249, ophthalmic Routine, ointment Intra-op sodium 2020-2020- No PRN, Univers chloride 03-29 Starting ity of (NS) 15:08: 17:49 Sat [place] injection 00 :00 03/29/21 at Medi [place] 1008, Branch Until Sat03/29/21 at 1249, Routine, Intra-op water for Yes PRN, Univers irrigation 03-29 Starting ity o f irrigation 15:01: Sat [place] solution 00 03/29/21 at Medic al 1001, Branch Until Discontinu ed, Routine, Intra-op water for 2020- No PRN, Univers irrigation 03-29 Starting ity of irrigation 15:01: 17:49 [facility] [place] solution 00 :00 03/29/21 at Medic al 1001, Branch Until Sat03/29/21 at 1249, Routine, Intra-op Hyaluronida Yes PRN, Univer s se, Human 03-29 Starting ity of Recomb. 14:57: Sat [place] (HYLENEX) 00 03/29/21 at [facility] injection 0957, Branch Until Discontinu ed, Routine, Intra-op eye block Yes PRN, Univers syringe 03-29 Starting ity o f mL 14:57: Wed [place] 00 03/29/21 at Medical 0957, Branch Until Discontinu ed, Intra-op Hyaluronida 2020- No PRN, Unive rs se, Human 03-29 Starting ity o f Recomb. 14:57: 17:49 [facility] (HYLENEX) 00 :00 03/29/21 at [facility] injection 0957, Branch Until Sat03/29/21 at 1249, Routine, Intra-op eye block 2020- No PRN, Univers syringe 11 03-29 Starting ity of mL 14:57: 17:49 [facility] 00 :00 03/29/21 at Medical 0957, Branch Until Sat03/29/21 at 1249, Intra-op mydriatic 2020- No .5mL 0.5 mL, Univ ers #5 03-29 Left Eye, ity of ophthalmic 13:00: 12:57 ONCE, 1 [place] solution 00 :00 dose, Sat Medica l 0.5 mL 03/29/21 at Branch syringe 0800, Routine, DSU Pre-op lactated 2020- No 1000mL at 42 [facility] rs ringers IV 03-29 06-16 mL/hr, ity of infusion 13:00: 12:56 1,000 mL, Carl as 1,000 mL 00 :00 IV Medical Infusion, Branch ONCE, 1 dose, 03/29/21 at 0800, Routine, DSU Pre-op mydriatic 2020- No .5mL 0.5 mL, Univ ers #5 03-2916 Left Eye, ity of ophthalmic 13:00: 12:57 ONCE, 1 [place] solution 00 :00 dose, Sat Medica l 0.5 mL 03/29/21 at Branch syringe 0800, Routine, DSU Pre-op lactated 2020- No 1000mL at 42 [facility] rs ringers IV 03-29-16 mL/hr, ity of infusion 13:00: 12:56 1,000 mL, Carl as 1,000 mL 00 :00 IV Medical Infusion, Branch ONCE, 1 dose, 03/29/21 at 0800, Routine, DSU Pre-op Levothyroxi Yes Take by Un [place] 50 mcg 6-14 mouth. ity of capsule 18:56: [place] 07 Medical Branch SITagliptin Yes 100mg Take 100 U nivers (JANUVIA) 5-19 mg by ity of 100 mg 16:20: mouth [place] tablet 18 daily. Medical Branch metFORMIN Yes 1000mg Take 1,000 Univers 1,000 mg 5-19 mg by ity of tablet 16:20: mouth 2 [place] 18 (two) Medical times [place] daily with meals. glipiZIDE Yes 5mg Take 5 mg Uni vers XL 5 mg 24 5-19 by mouth ity o f hr tablet 16:20: daily with [place] 18 breakfast. Medical Branch SITagliptin Yes 100mg Take 100 U nivers (JANUVIA) 5-19 mg by ity of 100 mg 16:20: mouth [place] tablet 18 daily. Medical Branch metFORMIN Yes 1000mg Take 1,000 Univers 1,000 mg 5-19 mg by ity of tablet 16:20: mouth 2 [place] 18 (two) Medical times [place] daily with meals. glipiZIDE Yes 5mg Take 5 mg Uni vers XL 5 mg 24 5-19 by mouth ity o f hr tablet 16:20: daily [place] 18 breakfast. Medical Branch SITagliptin Yes 100mg Take 100 U nivers (JANUVIA) 5-19 mg by ity of 100 mg 16:20: mouth [place] tablet 18 daily. Medical Branch metFORMIN Yes 1000mg Take 1,000 Univers 1,000 mg 5-19 mg by ity of tablet 16:20: mouth 2 [place] 18 (two) Medical times Branch daily with meals. glipiZIDE Yes 5mg Take 5 mg Uni vers XL 5 mg 24 5-19 by mouth ity o f hr tablet 16:20: daily [place] 18 breakfast. Medical Branch neomycin-po Yes PRN, Univer s lymyxin-dex 5-19 Starting ity of amethasone 15:31: Sat [place] (MAXITROL) 00 03/01/21 at [facility] ica 3.5 1031, Branch mg/g-10,000 Until unit/g-0.1 Discontinu % ed, ophthalmic Routine, ointment Intra-op neomycin-po 2020- No PRN, Unive rs lymyxin-dex 5-19 05-19 Starting ity of amethasone 15:31: 18:20 [facility] (MAXITROL) 00 :18 03/01/21 at [facility] ica 3.5 1031, Branch mg/g-10,000 Until Wed unit/g-0.1 03/01/21 at % 1320, ophthalmic Routine, ointment Intra-op Hyaluronida Yes PRN, Univer s se, Human -19 Starting ity of Recomb. 15:30: Sat [place] (HYLENEX) 00 03/01/21 at [facility] [place] injection 1030, [place] Until Discontinu ed, Routine, Intra-op eye block Yes PRN, Univers syringe 11 5-19 Starting ity o f mL 15:30: Sat [place] 03/01/21 at [facility] 1030, [place] Until Discontinu ed, Intra-op EPINEPHrine Yes PRN, Univer s 1:1,000 (1 5-19 Starting ity o f mg/mL) 15:30: Sat [place] (ADRENALIN) 00 03/01/21 at Sd dical injection 1030, Branch Until Discontinu ed, Routine, Intra-op DUOVISC Yes PRN, Univers (DUOVISC 03-01 Starting ity of VISCO 15:30: Wed [place] ELASTIC) 3 00 03/01/21 at [facility] ical %-4 %(0.5 1030, Branch mL) 1 % Until (0.55 mL) Discontinu intraocular ed, injection Routine, Intra-op dexamethaso Yes PRN, Univer s ne 03-01 Starting ity of (DECADRON 15:30: Wed [place] PHOSPHATE) 00 03/01/21 at [facility] ical injection 1030, Branch Until Discontinu ed, Routine, Intra-op Hyaluronida 2020- No PRN, Unive rs se, Human 03-01 Starting ity o f Recomb. 15:30: 18:20 [facility] [place] (HYLENEX) 00 :18 03/01/21 at Medi [place] injection 1030, Branch Until Sat03/01/21 at 1320, Routine, Intra-op eye block 2020- No PRN, Univers syringe 11 03-01 Starting ity of mL 15:30: 18:20 [facility] [place] 00 :18 03/01/21 at Medical 1030, Branch Until Sat03/01/21 at 1320, Intra-op EPINEPHrine 2020- No PRN, Unive rs 1:1,000 (1 03-01 Starting ity of mg/mL) 15:30: 18:20 [facility] (ADRENALIN) 00 :18 03/01/21 at Sd dical injection 1030, Branch Until Sat03/01/21 at 1320, Routine, Intra-op DUOVISC 2020- No PRN, Univers (DUOVISC 03-01 Starting ity of VISCO 15:30: 18:20 [facility] [place] ELASTIC) 3 00 :18 03/01/21 at [facility] ical %-4 %(0.5 1030, Branch mL) 1 % Until Wed (0.55 mL) 03/01/21 at intraocular 1320, injection Routine, Intra-op dexamethaso 2020- No PRN, Unive rs ne 03-01 Starting ity of (DECADRON 15:30: 18:20 Wed [place] PHOSPHATE) 00 :18 03/01/21 at [facility] ical injection 1030, Branch Until Sat03/01/21 at 1320, Routine, Intra-op ceFAZolin Yes PRN, Univers (ANCEF) 03-01 Starting ity of injection 15:29: Wed [place] 00 03/01/21 at [facility] 1029, Branch Until Discontinu ed, YANDY, Intra-op carbachoL Yes PRN, Univers (MIOSTAT) 03-01 Starting ity of 0.01 % 15:29: Wed [place] intraocular 00 03/01/21 at Sd dical injection 1029, Branch Until Discontinu ed, Routine, Intra-op balanced Yes PRN, Univers salt irrig 03-01 Starting ity o f soln comb1 15:29: Sat (BSS PLUS) 00 03/01/21 at [facility] ica ophthalmic 1029, Branch solution Until 500 mL bag Discontinu ed, Routine, Intra-op ceFAZolin 2020- No PRN, Univers (ANCEF) 03-01 Starting ity of injection 15:29: 18:20 Wed [place] 00 :18 03/01/21 at [facility] 1029, Branch Until Sat03/01/21 at 1320, YANDY, Intra-op carbachoL 2020- No PRN, Univers (MIOSTAT) 03-01 Starting ity o f 0.01 % 15:29: 18:20 Wed [place] intraocular 00 :18 03/01/21 at Sd dical injection 1029, Branch Until Sat03/01/21 at 1320, Routine, Intra-op balanced 2020- No PRN, Univers salt irrig 03-01 Starting ity of soln comb1 15:29: 18:20 Sat [place] (BSS PLUS) 00 :18 03/01/21 at [facility] ica ophthalmic 1029, Branch solution Until Sat 500 mL bag 03/01/21 at 1320, Routine, Intra-op mydriatic 2020- No .5mL 0.5 mL, Univ ers #5 03-01 Right Eye, ity of ophthalmic 13:00: 14:01 ONCE, 1 [place] solution 00 :00 dose, Wed Medica l 0.5 mL 03/01/21 at Branch syringe 0800, Routine, DSU Pre-op lactated 2020- No 1000mL at 42 Unive rs ringers IV 5- 05-19 mL/hr, ity of infusion 13:00: 13:18 1,000 mL, [place] 1,000 mL 00 :00 IV Medical Infusion, Branch ONCE, 1 dose, 03/01/21 at 0800, Routine, DSU Pre-op mydriatic 2020- No .5mL 0.5 mL, Univ ers #5 03-01- Right Eye, ity of ophthalmic 13:00: 14:01 ONCE, 1 [place] solution 00 :00 dose, Wed Medica l 0.5 mL 03/01/21 at Branch syringe 0800, Routine, DSU Pre-op lactated 2020- No 1000mL at 42 Unive rs ringers IV 03-01 05-19 mL/hr, ity of infusion 13:00: 13:18 1,000 mL, Carl as 1,000 mL 00 :00 IV Medical Infusion, Branch ONCE, 1 dose, 03/01/21 at 0800, Routine, DSU Pre-op SITagliptin 0 Yes 100mg Take 100 U nivers (JANUVIA) 5-17 mg by ity of 100 mg 17:02: mouth [place] tablet 58 daily. Medical Branch metFORMIN 0 Yes 1000mg Take 1,000 Univers 1,000 mg 5-17 mg by ity of tablet 17:02: mouth 2 [place] 58 (two) Medical times [place] daily with meals. glipiZIDE 0 Yes 5mg Take 5 mg Uni vers XL 5 mg 24 5-17 by mouth ity o f hr tablet 17:02: daily with [place] 58 breakfast. Medical Branch SITagliptin 0 Yes 100mg Take 100 U nivers (JANUVIA) 5-17 mg by ity of 100 mg 17:02: mouth [place] tablet 58 daily. Medical Branch metFORMIN Yes 1000mg Take 1,000 Univers 1,000 mg 5-17 mg by ity of tablet 17:02: mouth 2 [place] 58 (two) Medical times [place] daily with meals. glipiZIDE 2021-0 Yes 5mg Take 5 mg Uni vers XL 5 mg 24 5-17 by mouth ity o f hr tablet 17:02: daily [place] 58 breakfast. Medical Branch rosuvastati 2019-10 Yes Take 1 Meth brianne n (CRESTOR) 0-[address] 10 mg 00:00: mouth once Hospit a tablet 00 daily l rosuvastati 2020- No 10mg QD Take 10 mg Methodi [...] 100 mcg tablet glipiZIDE Yes Methodi (GLUCOTROL) 3-26 st 10 MG 00:00: Hospita tablet 00 l Immunizations Ordered Filled Immunization Date Status Comments [facility] e Immunization Name Name SARS-COV-2 COVID-19 2021-01-24 Completed Unive rsity of PFIZER VACCINE 00:00:00 [facility] SARS-COV-2 COVID-19 2021-01-24 Completed Unive rsity of PFIZER VACCINE 00:00:00 [facility] SARS-COV-2 COVID-19 2021-01-03 Completed Unive rsity of PFIZER VACCINE 00:00:00 [facility] SARS-COV-2 COVID-19 2021-01-03 Completed Unive rsity of PFIZER VACCINE 00:00:00 [facility] Vital Signs Vital Name Observation Time Observation Value Comments Source Systolic blood 2021-03-29 15:41:00 146 mm[Hg] Univer sity of pressure [place] [facility] Diastolic blood 2021-03-29 15:41:00 71 mm[Hg] Unive rsity of pressure [place] [facility] Heart rate 2021-03-29 15:41:00 92 /min [facility]i ty [facility] [place] [facility] Respiratory rate 2021-03-29 15:41:00 23 /min Univ ersity of [place] [facility] Oxygen saturation in 2021-03-29 15:41:00 98 /min University of Arterial blood by [place] [facility] [place] Pulse oximetry Branch Body temperature 2021-03-29 15:25:00 36.33 Jo Univ ersity of [place] [facility] Body height 2021-03-16 12:01:00 167.6 cm [facility] [place] [facility] Body weight 2021-03-16 12:01:00 72.6 kg [facility] [place] [facility] BMI 2021-03-16 12:01:00 25.85 kg/m2 [facility] [place] [facility] Systolic blood 2021-03-29 12:47:00 162 mm[Hg] Univer sity of pressure [place] [facility] Diastolic blood 2021-03-29 12:47:00 79 mm[Hg] Unive rsity of pressure [place] [facility] Heart rate 2021-03-29 12:47:00 102 /min [facility] [place] [facility] Body temperature 2021-03-29 12:47:00 36.78 Jo Univ ersity of [place] [facility] Respiratory rate 2021-03-29 12:47:00 18 /min Univ ersity of [place] [facility] Oxygen saturation in 2021-03-29 12:47:00 98 /min University of Arterial blood by [facility] Pulse oximetry Branch Body height 2021-03-16 12:01:00 167.6 cm [facility]i ty [facility] [place] [facility] Body weight 2021-03-16 12:01:00 72.6 kg [facility] [place] [facility] BMI 2021-03-16 12:01:00 25.85 kg/m2 [facility] [place] [facility] Systolic blood 2021-03-01 16:05:00 138 mm[Hg] Univer sity of pressure [place] [facility] Diastolic blood 2021-03-01 16:05:00 58 mm[Hg] Unive rsity of pressure [place] [facility] Heart rate 2021-03-01 16:05:00 89 /min Universi ty of [facility] Oxygen saturation in 2021-03-01 16:05:00 100 /min University of Arterial blood by [facility] Pulse oximetry Branch Body temperature 2021-03-01 13:12:00 36.33 Jo [facility] ersity [facility] Respiratory rate 2021-03-01 13:12:00 19 /min Univ ersity [facility] Body height 2021-02-27 17:00:00 167.6 cm Universi ty of [facility] Body weight 2021-02-27 17:00:00 72.576 kg Universi ty of [facility] BMI 2021-02-27 17:00:00 25.82 kg/m2 Universi [facility] Heart rate 2021-03-01 13:12:00 2 /min Universi ty [facility] Body temperature 2021-03-01 13:12:00 36.33 Jo [facility] 2021-03-01 13:12:00 19 /min [facility] O[facility] in 2021-03-01 13:12:00 98 /min University of Arterial blood by [facility] Pulse oximetry Branch Body weight 2021-02-27 17:00:00 72.576 kg Universi ty of [facility] BMI 2021-02-27 17:00:00 25.82 kg/m2 Universi ty [facility] Body height 2021-02-27 17:00:00 167.6 cm Universi ty [facility] Systolic blood 2021-06-20 13:38:00 136 mm[Hg] [facility] pressure Diastolic blood 2021-06-20 13:38:00 60 mm[Hg] [facility] pressure Heart rate 2021-06-20 13:38:00 97 [facility] 2021-06-20 13:38:00 167.6 cm [facility] Body weight 2021-06-20 13:38:00 72.122 kg [facility] BMI 2021-06-20 13:38:00 25.66 kg/m2 [facility] Procedures Procedure Date / Time Performing Source Performed Clinician PHACOEMULSIFICATION OF 2021-03-[address] [facility] CATARACT WITH INTRAOCULAR 14:44:00 Medica l Branch LENS IMPLANT POCT GLUCOSE (AUTOMATED) 2021-03-29 Kana Garcia [facility] 13:01:00 [facility] Branch POCT GLUCOSE (AUTOMATED) 2021-03-29 Kana Garcia [facility] 13:01:00 [facility] ASSIGNMENT OF BENEFITS 2021-03-28 Doctor Unassigned, [facility] 15:38:57 [place] [facility] PHACOEMULSIFICATION OF 2021-03-01 Kana Garcia [facility] CATARACT WITH INTRAOCULAR 15:11:00 Medica l Branch LENS IMPLANT POCT GLUCOSE (AUTOMATED) 2021-03-01 Kana Garcia [facility] 13:17:00 Medical [place] POCT GLUCOSE (AUTOMATED) 2021-03-01 Kana Garcia [facility] 13:17:00 [facility] ASSIGNMENT OF BENEFITS 2021-02-28 Doctor Unassigned, [facility] 14:04:23 [place] [facility] ECG 12-LEAD 2020-12-13 Brenda Leos [facility] 14:17:14 Plan of Care Planned Activity Planned Date Details Comments Source Future Scheduled Test 65+ PNEUMOCOCCAL Me [facility] VACCINE (1 of 2 - PPSV23) [code = 65+ PNEUMOCOCCAL VACCINE (1 of 2 - PPSV23)] Future Scheduled Test Hepatitis C screening [facility] (procedure) [code = 046628660] Future Scheduled Test BREAST CANCER SCREENING [facility] [code = BREAST CANCER SCREENING] Future Scheduled Test COLONOSCOPY SCREENING [facility] [code = COLONOSCOPY SCREENING] Future Scheduled Test SHINGLES VACCINES (#1) [facility] [code = SHINGLES VACCINES (#1)] Future Scheduled Test INFLUENZA VACCINE [code [facility] = INFLUENZA VACCINE] Encounters Start End Encounter Admission Attending Care Care Encounter Source Date/Time Date/Time Type Type Clinicians Facility Department ID 2021-11-08 Outpatient DWIGHT Vasquez [facility] [id number] 14:38:43 [facility] 2021-11-08 Outpatient DWIGHT Vasquez [facility] [id number] 14:37:08 Linda Tacho - Joshua l [facility] 2021-08-13 Outpatient AQUILES WESTON [facility] [id number] Univers 21:41:33 [facility] 2021-08-13 Outpatient Zaira GARCIANEW [facility] [id number] Univers 18:05:26 [facility] 2021-12-19 2021-12-19 Outpatient LEOS, [facility] [id number] 958 [place] 00:00:00 00:00:00 BRENDA [address] 2021-09-22 2021-09-22 Outpatient MAURI, [facility] [id number] 463 [place] 00:00:00 00:00:00 ISRRAEL [address] 2021-09-22 2021-09-22 Outpatient MAURI, [facility] [id number] 457 [place] 00:00:00 00:00:00 ISRRAEL [address] 2021-07-25 2021-07-26 Inpatient WYLER VON [facility] 021 [id number] 0695 [place] 00:00:00 00:00:00 ANNI, 964 [address] brianne LEANDRO 2021-07-24 2021-07-24 Outpatient GRADY, [facility] [id number] 5388 [place] 00:00:00 00:00:00 VICTORINA [address] 2021-07-24 2021-07-24 Outpatient GRADY, [facility] [id number] 9245 [place] 00:00:00 00:00:00 VICTORINA [address] 2021-07-24 2021-07-24 Outpatient GRADY, [facility] [id number] [place] 00:00:00 00:00:00 VICTORINA [address] 2021-07-24 2021-07-24 Outpatient GRADY, [facility] [id number] [place] 00:00:00 00:00:00 VICTORINA [address] 2021-07-21 2021-07-21 Outpatient MAURI, [facility] [id number] 370 [place] 00:00:00 00:00:00 ISRRAEL [address] 2021-07-21 2021-07-21 Outpatient GRADY, [facility] [id number] 8723 [place] 00:00:00 00:00:00 VICTORINA [address] 2021 2021 Outpatient [facility] [id number] 804 [place] 00:00:00 00:00:[address] 2021-06-27 2021-06-30 Inpatient [facility] 060 [id number] 56 [place] 00:00:00 00:00:00 ALVAREZ [address] 2021-06-20 2021-06-20 Office Leos 1.2.840.1 [id number] Methodi 08:30:38 13:21:14 Visit Brenda Johnson 49176.1.[address] 3.430.2.7 Hospit a .3.282003 l .8 2021-06-20 2021-06-20 Travel 1.2.840.1 1.2.202.708 [id number] Methodi 00:00:00 00:00:[address] 3.430.2.7 0.2.7.3.698 Ho spita .3.954832 084.8 l .8 2021-03-29 2021-03-29 Hospital [facility] 1.2.726.547 [id number] Univers 07:40:00 10:48:00 Encounter Kana Jones 350.1.13.10 [place] [phone] [facility] [place]71 [place] 2021-03-29 2021-03-29 Surgery [facility] 1.2.840.114 [id number] Univers 09:36:00 10:18:00 Kana Jones 350.1.13.10 ity [facility] [place] [id number] [facility] 020 [address] 2021-03-28 2021-03-28 Outpatient R [facility] [id number] Univers 11:00:00 11:00:00 [id number] [facility] 2021-03-28 2021-03-28 Outpatient R [facility] [id number] Univers 11:00:00 11:00:00 KANA [facility] 2021-03-28 2021-03-28 Orders Doctor OSORIO 1.2.840.114 [id number] Univers 00:00:00 00:00:00 Only Unassigned, LINDSEY 350.1.13.10 ity of [place] 4.2.7.2.686 Carl as [id number] [facility] 009 Branch 2021-03-01 2021-03-01 Hospital Jose [facility] 1.2.667.300 [id number] Univers 07:57:00 11:17:00 Encounter Kana [place] 350.1.13.10 [place] [id number] [facility] 071 [address] 2021-03-01 2021-03-01 Surgery [facility] 1.2.840.114 [id number] Univers 09:27:00 10:04:00 Kana [place] 350.1.13.10 [place] [id number] [facility] 020 Branch 2021-02-28 2021-02-28 Laboratory Only, Adc Test [facility] 1.2.840. 114 [id number] Univers 09:05:38 09:20:38 Only Kana Garcia Robert 350.1.13.1 0 [place] [id number] [facility] 353 [address] 2021-02-28 2021-02-28 [facility] [id number] Univers 08:45:00 08:45:00 KANA ity of [facility] 2021-02-28 2021-02-28 Orders Doctor OSORIO 1.2.840.114 [id number] Univers 00:00:00 00:00:00 Only Unassigned, LINDSEY 350.1.13.10 ity of [place] [facility] [facility] 4.2.7.2.686 Carl as [phone] [facility] 009 Branch 2021-02-20 2021-02-20 Support Associate Nura, Adc Lab Main [facility] 1.2.8 40.114 [id number] Univers 10:31:48 10:46:48 Visit Kana Garcia Robert 350.1.13.1 0 [place] [id number] Sd dical [address] 2021-02-20 2021-02-20 [facility] [id number] Univers 10:15:00 10:15:00 KANA greene [facility] 2020-12-13 2020-12-13 Office Deric, 1.2.840.1 [id number] [place]i 08:06:06 13:00:42 Visit Brenda Johnson 02215.1.[address] 3.430.2.7 Hospit a .3.693342 l .8 2020-12-13 2020-12-13 Travel 1.2.840.1 1.2.057.442 [id number] Methodi 00:00:00 00:00:[address] 3.430.2.7 0.2.7.3.698 Ho spita .3.079838 084.8 l .8 2020-11-23 2020-11-23 Orders Eugene, 1.2.840.1 [id number] Methodi 00:00:00 00:00:00 Only Magdalena 39659.1.[address] 3.430.2.7 Hospit a .3.194218 l .8 2020-08-02 2020-08-02 Refill Deric, 1.2.840.1 [id number] 2347 Methodi 00:00:00 00:00:00 Brenda Johnson 86608.1.[address] 3.430.2.7 Hospit a .3.007745 l .8 Results Test Description Test Time Test Comments Results Result Comments Source VITAMIN D, 25 [place] 2021-11-15 06:30:59 Test Item Value Reference Range Interpretation Comme nts VITAMIN D, 25 OH (test code 20 NG/ML SEE BELOW L NOTE: 25-HYDROXYVITAMIN D ASSAY = 4958) INCLUDES 25-HYD ROXYVITAMIN D2 AND D3. METHOD OLOGY IS CHEMILUMINESCEN T IMMUNOASSAY. I NTERPRETIVE RANGES PEDIATRIC (<17 YEARS) . . . . . . . . . . . NG/ ML 20-100ADULT: I NSUFFICIENT . . . . . . . . . . . . . . NG/ML <20 SUBOPTI MAL . . . . . . . . . . . . . . . NG/ ML 20-29 OPTIMAL . . . . . . . . . . . . . . . . . NG/ML 30-100 VITAMIN [id number] 06:30:28 Test Item Value Reference Range Interpretation Comments VITAMIN B-12 (test 424 PG/ML 200-950 UN LESS OTHERWISE code = 2840) INDICATED, ALL TESTING PERFORMED [facility] [employer] [address] [place] [address] 4 LABORATORY DIRE CTOR: ASHLEIGH FANG M.D. CLIA NUMBER [id number] [place] [id number] TSH, THIRD [id number] 06:30:28 Test Item Value Reference Range Interpretation Comments TSH, THIRD GENERATION (test code 0.306 UIU/ML 0.400-4.100 L = 2821) COMPREHENSIVE METABOLIC [id number] 05:57:57 Test Item Value Reference Range Interpretation Comments GLUCOSE (test code = 99 MG/DL 70-99 2216) BUN (test code = 12 MG/DL 8-23 2207) CREATININE (test 0.70 MG/DL 0.60-1.30 code = 2214) eGFR (2020 CKD-EPI) 94 ML/MIN/1.73 >60 (test code = 11192) CALC BUN/CREAT (test 17 RATIO -28 code = 2235) SODIUM (test code = 145 MEQ/L 225-132 8388) POTASSIUM (test code 4.9 MEQ/L 3.5-5.4 = 2228) CHLORIDE (test code 103 MEQ/L 95-107 = 2215) CARBON DIOXIDE (test 25 MEQ/L 19-31 code = 2206) CALCIUM (test code = 10.0 MG/DL 8.5-10.5 2208) PROTEIN, TOTAL (test 7.0 G/DL 6.1-8.3 code = 2229) ALBUMIN (test code = 4.8 G/DL 3.5-5.2 2200) CALC GLOBULIN (test 2.2 G/DL 1.9-3.7 code = 2240) CALC A/G RATIO (test 2.2 RATIO 1.0-2.6 code = 2234) BILIRUBIN, TOTAL 0.8 MG/DL See_Comment [Automated message] (test code = 2207) The syste m which generated this result transmit lucy reference range : <=1.2. The refe rence range was not u sed to interpret th is result as normal/abnormal . ALKALINE PHOSPHATASE 42 U/L 40-142 (test code = 2203) AST (test code = 15 U/L 9-40 2217) ALT (test code = 15 U/L 5-40 2218) LIPID [id number] 05:57:57 Test Item Value Reference Range Interpretation Comments CHOLESTEROL (test 122 MG/DL <200 code = 2210) TRIGLYCERIDES (test 162 MG/DL <150 H code = 2232) HDL CHOLESTEROL (test 64 MG/DL >39 code = 2220) CALC LDL CHOL (test 34 MG/DL <100 NOTE: C ALCULATED LDL code = 2237) IS BASED ON VAISHALI-SIMEON METHOD WHICHINCLUDES ADJUSTABLE TRIGLYCERIDE:VL DL CHOLESTEROL RAT IO.THIS FACTOR VARIES B Y MEASURED TRIGLY CERIDE AND NON-HDLCHOL ESTEROL CONCENTRATIONS WITH INCREASED CALCU LATED LDL SEENIN HIGH ER TRIGLYCERIDE OR LOWER NON-HDL SPECIME NS. FOR MOREINFORMATION , SEE CLIENT ANNOUNCE MENT AT [email or web address] RISK RATIO LDL/HDL 0.53 RATIO <3.22 (test code = 223) HEMOGLOBIN [id number] 05:57:09 Test Item Value Reference Range Interpretation Comments HEMOGLOBIN A1c (test 7.6 % 4.2-5.6 H [facility] DIABETES code = 61801) ASSOCIATION IDELINES FOR HGB A1C: PREDIABETES/INC REASED RISK . . . . . . . 5.7 -6.4% DIAGNOSIS OF D IABETES . . . . . . . . . > =6.5% WITH CONFIRM ATION OR APPROPRIATE SYM PTOMS NOTE: ASSAY MAY BE AFFECTED BY HEMOGLOBINOP ATHIES (SICKLE JO L ANEMIA, S-C DISEASE, OTHERS ) OR ARTIFICIALLY LO WERED BY DECREASED RED C ELL SURVIVAL (HEMOLYTIC ANEM IAS, BLOOD LOSS, ETC.) . CONSIDER ALTERNATE TESTI NG OR LABORATORY CONS ULTATION. ALBUMIN/CREATININE RATIO, URINE, [id number] 04:48:48 Test Item Value Reference Range Interpretation Comments CREATININE, URINE, 51.1 MG/DL NOT ESTAB CONC. (test code = 2072) ALBUMIN, URINE, 0.5 MG/DL NOT ESTAB RANDOM (test code = 08963) CALC ALBUMIN/CREAT, 10 MG/G <30 Note: RND (test code = Albumin/Cre atinine 50521) ratio reference interval reflec ts ADA and NKF guidelines. CBC W/AUTO DIFF WITH [id number] 04:28:05 Test Item Value Reference Range Interpretation Comments WBC (test code = 8.1 K/UL 3.5-11.0 1001) RBC (test code = 4.77 M/UL 3.80-5.40 1002) HEMOGLOBIN (test code 13.7 G/DL 11.5-15.5 = 1003) HEMATOCRIT (test code 41.3 % 34.0-45.0 = 1004) MCV (test code = 86.6 fL 80.0-99.0 1005) MCH (test code = 28.7 PG 25.0-33.0 1006) MCHC (test code = 33.2 G/DL 31.0-36.0 1007) RDW (test code = 15.3 % 11.5-15.0 H 1038) NEUTROPHILS (test 56.2 % code = 1008) LYMPHOCYTES (test 34.4 % code = 1010) MONOCYTES (test code 7.2 % = 1011) EOSINOPHILS (test 1.6 % code = 1012) BASOPHILS (test code 0.4 % = 1013) IMMATURE GRANULOCYTES 0.2 % (test code = 1036) NUCLEATED RBCS (test 0.0 /100 See_Comment [Autom ated code = 1065) WBC'S message] The sy stem which generated this result transmitted reference range : 0.0. The refere nce range was not u sed to interpret th is result as normal/abnormal . PLATELET COUNT (test 218 K/UL 130-400 code = 1015) ABSOLUTE NEUTROPHILS 4.54 K/UL 1.50-7.50 (test code = 1066) ABSOLUTE LYMPHOCYTES 2.78 K/UL 1.00-4.00 (test code = 1067) ABSOLUTE MONOCYTES 0.58 K/UL 0.20-1.00 (test code = 1068) ABSOLUTE EOSINOPHILS 0.13 K/UL 0.00-0.50 (test code = 1040) ABSOLUTE BASOPHILS 0.03 K/UL 0.00-0.20 (test code = 1069) ABS IMMATURE 0.02 K/UL 0.00-0.10 GRANULOCYTES (test code = 1020) ABS NUCLEATED RBCS 0.00 K/UL 0.00-0.11 (test code = 37919) SARS-CoV-2 (COVID-19) RNA [Presence] in Respiratory specimen by GLENYS with probe [id number] 15:21:34 Test Item Value Reference Range Interpretation Comments SARS-CoV-2 (COVID-19) RNA Not detected Not-Detected [Presence] in Respiratory specimen by GLENYS with probe detection (test code = 90310-2) Whether patient is employed in a healthcare setting (test code = 40829-5) Whether the patient has symptoms related to condition of interest (test code = 09829-4) Patient was hospitalized because of this condition (test code = 23915-5) Whether the patient was admitted to intensive care unit (ICU) for condition of interest (test code = 26697-6) Whether patient resides in a congregate care setting (test code = 86834-3) POCT GLUCOSE (AUTOMATED)2021-03-29 13:05:10 Test Item Value Reference Range Interpretation Comments POCT GLU (test code = 2312730851) 161 mg/dL 70-110 H Lab Interpretation (test code = Abnormal 24716-7) [facility] GLUCOSE (AUTOMATED)2021-03-29 13:05:10 Test Item Value Reference Range Interpretation Comments POCT GLU (test code = 0187982412) 161 mg/dL 70-110 H Lab Interpretation (test code = Abnormal 06968-6) [facility] GLUCOSE (AUTOMATED)2021-03-01 13:20:42 Test Item Value Reference Range Interpretation Comments POCT GLU (test code = 4676215559) 150 mg/dL 70-110 H Lab Interpretation (test code = Abnormal 97343-8) [facility] GLUCOSE (AUTOMATED)2021-03-01 13:20:42 Test Item Value Reference Range Interpretation Comments POCT GLU (test code = 5625702636) 150 mg/dL 70-110 H Lab Interpretation (test code = Abnormal 55397-8) [facility] GLUCOSE(AGE >30DAYS)2021-03-01 13:17:00 Test Item Value Reference Range Interpretation Comments POCT Glu (age>30days) (test code = 150 mg/dL 70-110 A 3342) Lab Interpretation (test code = Abnormal 01138-7) [facility] GLUCOSE(AGE >30DAYS)2021-03-01 13:17:00 Test Item Value Reference Range Interpretation Comments POCT Glu (age>30days) (test code = 150 mg/dL 70-110 A 3342) Lab Interpretation (test code = Abnormal 03767-4) [facility] 12 [id number] 16:53:30 Test Item Value Reference Range Interpretation Comments Ventricular rate (test code = 253) Atrial rate (test code = 255) [place] interval (test code = 266) QRSD interval (test code = 260) QT interval (test code = 264) QTC interval (test code = 265) P axis 1 (test code = 267) QRS axis 1 (test code = 268) T wave axis (test code = 270) EKG impression (test Normal sinus code = 273) rhythm-Possible Left atrial enlargement-Septal infarct , age undetermined-Abnormal ECG-No previous ECGs available-Electronica lly Signed By Sherlyn Huang MD ([id number]) on 12/14/2020 10:53:28 AM [facility]
[2021-12-29] MEDS ORDERED: ACYCLOVIR 400 MG TABLET ONE (14:23)
[2021-12-29] MEDS ORDERED: ONDANSETRON 4 MG (ODT) TAB ONE (14:23)
[2021-12-29] MEDS ORDERED: MORPHINE 4 MG/ML SYR ONE (14:23)
--- NOTE | 2021-12-29 14:57 | ER ---
Nurse's Notes [facility] Name: Cindi Perry Age: 66 yrs Sex: Female : 1955 Arrival Date: 12/29/2021 Time: 12:16 Bed 6 Private MD: Diagnosis: Zoster without complications Presentation: 12/29 13:09 Chief complaint: Patient states: MEDINA getting progressively worse for 1 week. Noticed ll1 painful rash to L side of forehead for 2 days. Started Augmentin yesterday for possible sinus infection. + low grade fever at home. Coronavirus screen: Vaccine status: Patient reports receiving the 2nd dose of the covid vaccine. Client denies travel out of the [place] in the last 14 days. fatigue, fever, headache, nausea, vomiting. Client presents with at least one sign or symptom that may indicate coronavirus-19. Standard/surgical mask placed on the client. Ebola Screen: Patient denies travel to an Ebola-affected area in the 21 days before illness onset. Initial Sepsis Screen: Does the patient meet any 2 criteria? HR > 90 bpm. No. Patient's initial sepsis screen is negative. Does the patient have a suspected source of infection? Yes: S/S of meningitis or endocarditis. Risk Assessment: Do you want to hurt yourself or someone else? Patient reports no desire to harm self or others. Onset of symptoms was December 22, 2021. 13:09 Method Of Arrival: Ambulatory ll1 13:09 Acuity: AG 3 ll1 Triage Assessment: 15:28 Headache History: Denies prior headaches. General: Appears in no apparent distress. ld1 comfortable, Behavior is calm, cooperative, appropriate for age. Pain: Also complains of no other associated symptoms. Historical: - Allergies: 13:12 No Known Allergies; ll1 - PMHx: 13:12 diabetes mellitus; Heart Murmur; Hypercholesterolemia; Hypertensive disorder; ll1 - PSHx: 13:12 hysterectomy; aortic valve replcement; ll1 - Immunization history:: Client reports receiving the 2nd dose of the Covid vaccine. - Social history:: Smoking status: Patient denies any tobacco usage or history of. Screenin:28 Abuse screen: Denies threats or abuse. Nutritional screening: No deficits noted. vg1 Tuberculosis screening: No symptoms or risk factors identified. Fall Risk No fall in past 12 months (0 pts). No secondary diagnosis (0 pts). No IV (0 pts). Ambulatory Aid- None/Bed Rest/Nurse Assist (0 pts). Gait- Normal/Bed Rest/Wheelchair (0 pts) Mental Status- Oriented to own ability (0 pts). Total Macdonald Fall Scale indicates No Risk (0-24 pts). Assessment: 13:28 General: Appears in no apparent distress. uncomfortable, Behavior is calm, cooperative. vg1 Pain: Complains of pain in face and scalp Pain currently is 8 out of 10 on a pain scale. Pain began 2-3 days ago. Neuro: Level of Consciousness is awake, alert, obeys commands, Oriented to person, place, time, situation. Cardiovascular: Patient's skin is warm and dry. Respiratory: Airway is patent Respiratory effort is even, unlabored, Denies shortness of breath. GI: Reports vomiting, vomited twice yesterday. : No signs and/or symptoms were reported regarding the genitourinary system. EENT: Throat is clear. Derm: Rash noted that is on face and scalp. Musculoskeletal: Circulation, motion, and sensation intact. 14:20 Reassessment: Patient appears in no apparent distress at this time. Patient and/or vg1 family updated on plan of care and expected duration. Pain level reassessed. Patient is alert, oriented x 3, equal unlabored respirations, skin warm/dry/pink. Vital Signs: 13:09 BP 156 / 89; Pulse 134; Resp 18; Temp 98.5; Pulse Ox 98% on R/A; Weight 63.5 kg; Height ll1 5 ft. 6 in. (167.64 cm); Pain 9/10; 13:34 Pulse 125; vg1 14:30 BP 174 / 84; Pulse 120; Resp 17; Pulse Ox 96% on R/A; vg1 13:09 Body Mass Index 22.60 (63.50 kg, 167.64 cm) ll1 ED Course: 12:16 Patient arrived in ED. ja2 13:12 Triage completed. ll1 13:13 Arm band placed on Patient placed in an exam room, on a stretcher. 1 13:20 Sita Palomo, RN is Primary Nurse. vg1 13:28 Patient has correct armband on for positive identification. Bed in low position. Call vg1 light in reach. Side rails up X 1. 13:28 No provider procedures requiring assistance completed. vg1 13:43 Michele Garcia PA is PHCP. jr8 13:43 Gina Chan MD is Attending Physician. jr8 15:29 Patient did not have IV access during this emergency room visit. ld1 Administered Medications: 14:20 Drug: Ondansetron 4 mg Route: PO; vg1 14:20 Drug: Acyclovir 800 mg Route: PO; vg1 14:22 Drug: morphine 4 mg Route: IM; Site: right deltoid; vg1 Outcome: 14:57 Discharge ordered by . jr8 15:28 Discharged to home ambulatory, with family. ld1 15:28 Condition: stable 15:28 Discharge instructions given to patient, family, Instructed on discharge instructions, follow up and referral plans. medication usage, Demonstrated understanding of instructions, follow-up care, medications, Prescriptions given X 3. 15:29 Patient left the ED. ld1 Signatures: Michele Garcia PA PA jr8 Sita Palomo RN RN vg1 hCidi Carreon RN RN 1 Melissa Toney RN RN ld1 Evita Mead
--- NOTE | 2021-12-29 14:57 | EDPHYS ---
Physician Documentation [facility] Name: Cindi Perry Age: 66 yrs Sex: Female : 1955 Arrival Date: 12/29/2021 Time: 12:16 Bed 6 Private MD: ED Physician Gina Chan HPI: 12/29 14:51 This 66 yrs old Female presents to ER via Ambulatory with complaints of Headache, SPOTS jr8 ON FACE. 14:51 Associated signs and symptoms: Pertinent positives: rash. Severity of symptoms: At its jr8 worst the pain was mild, in the emergency department the pain is unchanged. The symptoms are alleviated by nothing. the symptoms are aggravated by nothing. The patient has not experienced similar symptoms in the past. The patient has not recently seen a physician. This is a 66-year-old female that presented to the emergency room with complaints of left facial pain. Patient stated that she has had a headache for the past week and now has a rash to the left forehead and scalp extending down to the left eye. Denies any eye pain intraocularly.. Historical: - Allergies: 13:12 No Known Allergies; ll1 - PMHx: 13:12 diabetes mellitus; Heart Murmur; Hypercholesterolemia; Hypertensive disorder; ll1 - PSHx: 13:12 hysterectomy; aortic valve replcement; ll1 - Immunization history:: Client reports receiving the 2nd dose of the Covid vaccine. - Social history:: Smoking status: Patient denies any tobacco usage or history of. ROS: 14:51 Eyes: Negative for injury, pain, redness, and discharge, ENT: Negative for injury, jr8 pain, and discharge, Neck: Negative for injury, pain, and swelling, Cardiovascular: Negative for chest pain, palpitations, and edema, Respiratory: Negative for shortness of breath, cough, wheezing, and pleuritic chest pain, Abdomen/GI: Negative for abdominal pain, nausea, vomiting, diarrhea, and constipation, Back: Negative for injury and pain, MS/Extremity: Negative for injury and deformity. 14:51 Skin: Positive for rash. 14:51 Neuro: Positive for headache. Exam: 14:51 Eyes: Pupils equal round and reactive to light, extra-ocular motions intact. Lids and jr8 lashes normal. Conjunctiva and sclera are non-icteric and not injected. Cornea within normal limits. Periorbital areas with mild swelling. Vesicular rash noted to the upper eyelid ENT: Nares patent. No nasal discharge, no septal abnormalities noted. Tympanic membranes are normal and external auditory canals are clear. Oropharynx with no redness, swelling, or masses, exudates, or evidence of obstruction, uvula midline. Mucous membranes moist. Neck: Trachea midline, no thyromegaly or masses palpated, and no cervical lymphadenopathy. Supple, full range of motion without nuchal rigidity, or vertebral point tenderness. No Meningismus. Cardiovascular: Regular rate and rhythm with a normal S1 and S2. No gallops, murmurs, or rubs. Normal PMI, no JVD. No pulse deficits. Respiratory: Lungs have equal breath sounds bilaterally, clear to auscultation and percussion. No rales, rhonchi or wheezes noted. No increased work of breathing, no retractions or nasal flaring. Abdomen/GI: Soft, non-tender, with normal bowel sounds. No distension or tympany. No guarding or rebound. No evidence of tenderness throughout. Back: No spinal tenderness. No costovertebral tenderness. Full range of motion. MS/ Extremity: Pulses equal, no cyanosis. Neurovascular intact. Full, normal range of motion. Neuro: Awake and alert, GCS 15, oriented to person, place, time, and situation. Cranial nerves II-XII grossly intact. Motor strength 5/5 in all extremities. Sensory grossly intact. Cerebellar exam normal. Normal gait. 14:51 Skin: Has clustering vesicular and erythematous rash to the external portions of the left eye extending to the left forehead and to the left side of the scalp. Follows in classic dermatomal distribution pattern. No other lesions noted. Consistent with herpes zoster. Vital Signs: 13:09 BP 156 / 89; Pulse 134; Resp 18; Temp 98.5; Pulse Ox 98% on R/A; Weight 63.5 kg; Height ll1 5 ft. 6 in. (167.64 cm); Pain 9/10; 13:34 Pulse 125; vg1 14:30 BP 174 / 84; Pulse 120; Resp 17; Pulse Ox 96% on R/A; vg1 13:09 Body Mass Index 22.60 (63.50 kg, 167.64 cm) ll1 MDM: 13:43 Patient medically screened. 8 14:51 Data reviewed: vital signs, nurses notes, and as a result, I will discharge patient. jr8 Data interpreted: Pulse oximetry: on room air is 96 %. Interpretation: normal. Counseling: I had a detailed discussion with the patient and/or guardian regarding: the historical points, exam findings, and any diagnostic results supporting the discharge/admit diagnosis, the need for outpatient follow up, a family practitioner, to return to the emergency department if symptoms worsen or persist or if there are any questions or concerns that arise at home. Administered Medications: 14:20 Drug: Ondansetron 4 mg Route: PO; vg1 14:20 Drug: Acyclovir 800 mg Route: PO; vg1 14:22 Drug: morphine 4 mg Route: IM; Site: right deltoid; vg1 Disposition Summary: 12/29/21 14:57 Discharge Ordered Location: Home jr8 Problem: new jr8 Symptoms: have improved jr8 Condition: Stable jr8 Diagnosis - Zoster without complications jr8 Followup: jr8 - With: Private Physician - When: 2 - 3 days - Reason: Recheck today's complaints, Continuance of care, Re-evaluation by your physician Discharge Instructions: - Discharge Summary Sheet jr8 - Shingles jr8 Forms: - Medication Reconciliation Form jr8 - Thank You Letter jr8 - Antibiotic Education jr8 - Prescription Opioid Use jr8 Prescriptions: - Acyclovir 800 mg Oral Tablet - take 1 tablet by ORAL route 5 times per day for 7 days; 35 tablet; Refills: 0, jr8 Product Selection Permitted - Tylenol-Codeine #3 300 mg-30 mg Oral - take 2 tablet by ORAL route every 8 hours As needed; 20 tablet; Refills: 0, jr8 Product Selection Permitted - ondansetron 4 mg Oral tablet,disintegrating - place 1 tablet by TRANSLINGUAL route every 8 hours As needed; 12 tablet; jr8 Refills: 0, Product Selection Permitted Signatures: Michele Garcia PA PA jr8 Sita Palomo RN RN vg1 Chidi Carreon RN RN ll1
[2021-12-29 15:49] VITALS: TEMP 98.5
[2021-12-29 15:51] VITALS: BP 174/84; O2SAT 96
== END 2021-12-29 15:29 | disposition home or self-care (01) ==
LOC: ER 12:11
DX: B02.9 Zoster without complications (principal); E11.9 Type 2 diabetes mellitus without complications; I10 Essential (primary) hypertension; Z95.4 Presence of other heart-valve replacement
CPT/HCPCS: 96372; 99283